=== PATIENT | female | born 1995 | race Caucasian/White ===

== ENCOUNTER 2016-08-16 21:57 | Emergency (ER) | payer OTHER ==
[~2016-08-16] VITALS: Ht 167.6 cm; Wt 101.0 kg
[~2016-08-16 21:57] MED LIST: CIPR500T4 PO; IBUP-1542 PO; ONDA4TAB35 PO
[2016-08-16 21:59] VITALS: Ht 167.6 cm; Wt 101.0 kg
--- NOTE | 2016-08-16 22:25 | ERD ---
ER Documentation Chief Complaint Date/Time DATE: 08/16/16 TIME: 22:24 Chief Complaint pelvic pain x 4 days HPI Patient is a 20-year-old female with no past medical history who presents to the ED with bilateral pelvic pain and suprapubic pain for the last 4 days. She states that her last normal menstrual period was sometime in mid June 2016. Denies vaginal bleeding or abnormal vaginal discharge. Denies dysuria or urinary symptoms. Denies fever or chills. Denies back pain. States that she has never been . ROS All systems reviewed and are negative except as per history of present illness. Medications Home Meds Active Scripts Phenazopyridine Hcl* (Pyridium*) 100 Mg Tab, 100 MG PO TID Y for URINARY PAIN, # 8 TAB Prov:CINDI STEELE PA-C 08/16/16 Ibuprofen* (Motrin*) 600 Mg Tab, 600 MG PO Q6, #30 TAB Prov:CINDI STEELE PA-C 08/16/16 Nitrofurantoin Monohyd Macrocr* (Macrobid*) 100 Mg Capsr, 100 MG PO BID for 14 Days, CAP Prov:CINDI STEELE PA-C 08/16/16 Ibuprofen* (Ibuprofen*) 600 Mg Tablet, 600 MG PO Q6H Y for pa, #30 TAB Prov:BRIELLE PADILLA NP 04/05/15 Ondansetron Hcl* (Zofran* ODT) 4 mg -ODT Tab.disper, 4 MG PO Q8 Y for NAUSEA AND OR VOMITING, #30 TAB Prov:BRIELLE PADILLA NP 04/05/15 Ciprofloxacin Hcl* (Ciprofloxacin Hcl*) 500 Mg Tablet, 500 MG PO BID, #20 TAB Prov:BRIELLE PADILLA NP 04/05/15 Reported Medications [none] Unknown Strength No Conflict Check 04/05/15 Allergies Allergies: Coded Allergies: No Known Allergy (Unverified , 03/28/11) PMhx/Soc History of Surgery: No Anesthesia Reaction: No Hx Neurological Disorder: No Hx Respiratory Disorders: No Hx Cardiac Disorders: No Hx Psychiatric Problems: No Hx Miscellaneous Medical Probl: No Hx Alcohol Use: No Hx Substance Use: No Hx Tobacco Use: No FmHx Family History: No coronary disease, No diabetes, No other Physical Exam Vitals Vital Signs Date Time Temp Pulse Resp B/P Pulse Ox O2 Delivery O2 Flow Rate FiO2 08/16/16 21:59 98.9 88 20 131/69 98 Physical Exam GENERAL: Well-developed, well-nourished female. Appears in no acute distress. HEAD: Normocephalic, atraumatic. EYES: Pupils are equally reactive bilaterally. EOMs grossly intact. No conjunctival erythema. ENT: Moist mucous membranes. No uvula deviation. No kissing tonsils. No exudates. NECK: Supple. No lymphadenopathy or thyromegaly. No meningismus. negative kernig. negative brudinski. LUNG: Clear to auscultation bilaterally. No rhonchi, wheezing, rales or coarse breath sounds. HEART: Regular rate and rhythm. No murmurs, rubs or gallops. ABDOMEN: No scars, ecchymosis or rashes noted. Soft, nontender, and nondistended. Positive bowel sounds in all four quadrants. No rebound tenderness , no guarding. (-) McBurneys point tenderness. No CVA tenderness. Bilateral pelvic pain. BACK: No midline tenderness. Extremities: Equal pulses bilaterally. No peripheral clubbing, cyanosis or edema. No unilateral leg swelling. NEUROLOGIC: Alert and oriented. Moving all four extremities. 5/5 strength in all extremities. Normal speech. Steady gait. SKIN: Normal color. Warm and dry. No rashes or lesions. Capillary refill < 2 seconds Results 24 hrs Laboratory Tests Test 08/16/16 22:32 Bedside Urine pH (LAB) 6.0 Bedside Urine Protein (LAB) 2+ Bedside Urine Glucose (UA) Negative Bedside Urine Ketones (LAB) Negative Bedside Urine Blood 1+ Bedside Urine Nitrite (LAB) Positive Bedside Urine Leukocyte Esterase (L Trace Procedures/MDM ER COURSE: I kept the patient and/or family informed of laboratory and diagnostic imaging results throughout the emergency room course. IMAGING STUDIES [place] [id number] Radiology Main Line: [phone] DIAGNOSTIC IMAGING REPORT Patient: EDGARDO LESTER : 1995 Age: 20 Sex: F MR #: [id number] DOS: 08/16/16 6140 Ordering MD: CINDI STEELE PA-C Location: [facility] Room/Bed: PROCEDURE: US Pelvis. CLINICAL INDICATION: Pelvic pain TECHNIQUE: Multiple sonographic images of the pelvis were obtained utilizing a transabdominal and endovaginal technique. The images were reviewed on a PACS workstation. COMPARISON: None available FINDINGS: Uterus: Normal in size, contour and echogenicity with no evidence for myometrial masses. Size is estimated at 5.4 x 3.7 x 2.6 cm. Cervix: No abnormalities of significance are seen. Endometrium: Normal in thickness; 4.0 mm. Right ovary / adnexa: Normal in size estimated at 3.6 x 2.5 x 1.7 cm. No evidence for masses, normal blood flow on Doppler interrogation. Left ovary/adnexa: Normal in size estimated at 3.1 x 2.4 x 2 cm. No evidence for solid masses, normal blood flow on Doppler interrogation. Cul-de-sac: No evidence of free fluid. RPTAT:HJJR IMPRESSION: Unremarkable pelvic ultrasound. Physician Yoshi Date Time Electronically viewed and signed by Physician Yoshi on 08/16/2016 23:28 JR/ CC: CINDI STEELE PA-C LABORATORY STUDIES Urine dip showed positive nitrites, trace leukocytes and 2+ hematuria. negative test MEDICAL DECISION MAKING: This is a 20-year-old female who presents with bilateral pelvic pain and suprapubic tenderness.. Vital signs were reviewed. Patient is afebrile. Patient is not hypoxic. Patient is not toxic or ill-appearing. Patient has a UTI as demonstrated by positive nitrites and trace leukocytes in her urine. Low suspicion for ovarian torsion, PID, tuboovarian abscess, ectopic , bowel obstruction, pyelonephritis, appendicitis, cervicitis, septic , molar , HELLP syndrome, preeclampsia, eclampsia, placenta previa, placenta abruptia. Ultrasound as of by radiologist is unremarkable. DISCHARGE: At this time, patient is stable for discharge and outpatient management with no new complaints during the ER course. Patient was sent home with Macrobid, Motrin and Pyridium. Patient will be discharged home with instructions to recheck for new or worsening symptoms such as fever, nausea, weakness, LOC and to follow up with primary care in the next 1-2 days. Patient was advised to return to the ER for any new or worsening symptoms. Plan was discussed and patient and/or family understands and agrees. Home instructions were given. Departure Diagnosis: Primary Impression: UTI (urinary tract infection) Urinary tract infection type: site unspecified Hematuria presence: with hematuria Qualified Code: N39.0 - Urinary tract infection with hematuria, site unspecified Condition: Stable CINDI STEELE PA-C August 16, 2016 22:25
[2016-08-16 22:30] LABS: URINE BLOOD (Dip) POC 1+ (NEGATIVE)
[2016-08-16] MEDS ORDERED: NITR-58 PO (22:49)
[2016-08-16] MEDS ORDERED: IBUP-1542 PO (22:49)
[2016-08-16] MEDS ORDERED: PHEN-537 PO (22:50)
--- NOTE | 2016-08-16 23:28 | RADRPT ---
PROCEDURE: US Pelvis. CLINICAL INDICATION: Pelvic pain TECHNIQUE: Multiple sonographic images of the pelvis were obtained utilizing a transabdominal and endovaginal technique. The images were reviewed on a PACS workstation. COMPARISON: None available FINDINGS: Uterus: Normal in size, contour and echogenicity with no evidence for myometrial masses. Size is est imated at 5.4 x 3.7 x 2.6 cm. Cervix: No abnormalities of significance are seen. Endometrium: Normal in thickness; 4.0 mm. Right ovary / adnexa: Normal in size estimated at 3.6 x 2.5 x 1.7 cm. No evidence for masses, norm al blood flow on Doppler interrogation. Left ovary/adnexa: Normal in size estimated at 3.1 x 2.4 x 2 cm. No evidence for solid masses, norm al blood flow on Doppler interrogation. Cul-de-sac: No evidence of free fluid. RPTAT:HJJR IMPRESSION: Unremarkable pelvic ultrasound. Physician Yoshi Date Time Electronically viewed and signed by Physician Yoshi on 08/16/2016 23:28 /
[2016-08-17 00:09] VITALS: PULSE 86; RESP 20; TEMP 98.8
== END 2016-08-17 00:08 | disposition home or self-care (01) ==
LOC: FTE 21:57
DX: N39.0 Urinary tract infection, site not specified (principal)
CPT/HCPCS: 76830; 76856; 81003

== ENCOUNTER 2016-10-21 14:24 | Emergency (ER) | payer MEDICAID, OTHER ==
[~2016-10-21] VITALS: Ht 162.6 cm; Wt 105.5 kg
[~2016-10-21 14:24] MED LIST changes: +NITR-58 PO; +PHEN-537 PO
[2016-10-21 14:43] VITALS: Ht 162.6 cm; Wt 105.5 kg
[2016-10-21] MEDS ORDERED: ONDANSETRON 4 MG INJ IV STA (15:58)
[2016-10-21] MEDS ORDERED: ACETAMINOPHEN 500 MG TAB PO STA (15:58)
[2016-10-21] MEDS ORDERED: SOD CHLORIDE 0.9% 1,000 ML IV STA (15:58)
[2016-10-21 16:35] LABS: BASOPHIL # 0.1 10^3/ul (0.0-0.1); BASOPHILS % 0.3 % (0.0-2.0); HEMATOCRIT 40.1 % (37.0-47.0); HEMOGLOBIN 13.6 g/dl (12.0-16.0); LYMPHOCYTES % 5.3 % (15.0-51.0); MEAN CORPUSCULAR HEMOGLOBIN 29.8 pg (29.0-33.0); MEAN CORPUSCULAR HGB CONC 33.9 g/dl (32.0-37.0); MEAN CORPUSCULAR VOLUME 87.7 fl (82.0-101.0); MONOCYTE # 1.3 10^3/ul (0.3-0.9); MONOCYTES % 6.9 % (0.0-11.0); NEUTROPHIL # 15.7 10^3/ul (1.6-7.5); NEUTROPHILS % 86.9 % (39.0-77.0); PLATELET COUNT 342 10^3/UL (140-415); RED BLOOD COUNT 4.57 10^6/ul (4.20-5.40); RED CELL DISTRIBUTION WIDTH 13.2 % (11.5-14.5)
[2016-10-21 16:45] LABS: ADD UMIC YES; UR ASCORBIC ACID NEGATIVE (NEGATIVE); UR BACTERIA FEW /HPF (NONE SEEN); UR BILIRUBIN (Dip) NEGATIVE (NEGATIVE); UR BLOOD (Dip) 2+ mg/dL (NEGATIVE); UR CLARITY CLOUDY (CLEAR); UR COLOR AMBER (YELLOW); UR GLUCOSE (Dip) NEGATIVE (NEGATIVE); UR KETONES (Dip) NEGATIVE (NEGATIVE); UR LEUKOCYTE ESTERASE (Dip) 2+ Leu/ul (NEGATIVE); UR MUCUS FEW /HPF (NONE SEEN); UR NITRITE (Dip) POSITIVE (NEGATIVE); UR RBC 38 /HPF (0-5); UR SPECIFIC GRAVITY (Dip) 1.024 (1.003-1.030); UR SQUAMOUS EPITHELIAL CELL FEW /HPF (FEW); UR TOTAL PROTEIN (Dip) 2+ mg/dl (NEGATIVE); UR UROBILINOGEN (Dip) 2+ mg/dL (NEGATIVE); UR WBC CLUMPS FEW /HPF (NONE SEEN)
[2016-10-21 17:01] LABS: ALBUMIN 4.6 g/dl (3.3-4.9); ALBUMIN/GLOBULIN RATIO 1.24; BILIRUBIN,INDIRECT 0.9 mg/dl (0-1.1); BILIRUBIN,TOTAL 0.9 mg/dl (0.2-1.3); CALCIUM 9.7 mg/dl (8.4-10.2); CREATININE 0.87 mg/dl (0.44-1.00); POTASSIUM 4.1 mmol/L (3.5-5.1); TOTAL PROTEIN 8.3 g/dl (6.1-8.1)
[2016-10-21] MEDS ORDERED: CEPH-443 PO (17:46)
[2016-10-21] MEDS ORDERED: ONDA4TAB14 PO (17:47)
[2016-10-21] MEDS ORDERED: ACET500C5 PO (17:47)
[2016-10-21] MEDS ORDERED: CEFTRIAXONE 1 GM/50 ML (PMX) 50 ML IVPB ONE (18:00)
[2016-10-21] MEDS ORDERED: CEFTRIAXONE 1 GM INJ IVPB ONE (18:00)
--- NOTE | 2016-10-21 18:32 | ERD ---
ER Documentation Chief Complaint Date/Time DATE: 10/21/16 TIME: 18:29 Chief Complaint Back pain and vomitting since yesterday. HPI Patient is a 20-year-old female here with mother who presents to the ED with back pain, vomiting and dysuria 1 day. Patient has a history of pyelonephritis and cystitis. Patient also complains of a fever. Denies diarrhea or abdominal pain. Denies chest pain or cough or shortness of breath. Denies headache or dizziness, neck pain or neck stiffness. Denies leg pain or leg swelling. Has not taken any medications for her symptoms. Patient was on Cipro earlier this year for similar symptoms. ROS All systems reviewed and are negative except as per history of present illness. Medications Home Meds Active Scripts Ondansetron (Ondansetron Odt) 4 Mg Tab.rapdis, 4 MG PO Q6H Y for NAUSEA AND/OR VOMITING, #10 TAB Prov:CINDI STEELE-C 10/21/16 Acetaminophen* (Tylophen*) 500 Mg Capsule, 1 CAP PO Q6H Y for PAIN AND OR ELEVATED TEMP, #20 CAP Prov:CINDI STEELE-C 10/21/16 Cephalexin* (Keflex*) 500 Mg Capsule, 500 MG PO TID for 14 Days, CAP Prov:CINDI STEELE-C 10/21/16 Phenazopyridine Hcl* (Pyridium*) 100 Mg Tab, 100 MG PO TID Y for URINARY PAIN, # 8 TAB Prov:CINDI STEELE-C 08/16/16 Ibuprofen* (Motrin*) 600 Mg Tab, 600 MG PO Q6, #30 TAB Prov:CINDI STEELE-C 08/16/16 Nitrofurantoin Monohyd Macrocr* (Macrobid*) 100 Mg Capsr, 100 MG PO BID for 14 Days, CAP Prov:CINDI STEELE-C 08/16/16 Ibuprofen* (Ibuprofen*) 600 Mg Tablet, 600 MG PO Q6H Y for pa, #30 TAB Prov:BRIELLE PADILLA NP 04/05/15 Ondansetron Hcl* (Zofran* ODT) 4 mg -ODT Tab.disper, 4 MG PO Q8 Y for NAUSEA AND OR VOMITING, #30 TAB Prov:BRIELLE PADILLA [employer]ING [employer]ACHINE OPERATOR 04/05/15 Ciprofloxacin Hcl* (Ciprofloxacin Hcl*) 500 Mg Tablet, 500 MG PO BID, #20 TAB Prov:BRIELLE PADILLA [employer] ATT[employer]ING MACHINE OPERATOR 04/05/15 Reported Medications [none] Unknown Strength No Conflict Check 04/05/15 Allergies Allergies: Coded Allergies: No Known Allergy (Unverified , 10/21/16) PMhx/Soc Medical and Surgical Hx: pt denies Medical Hx, pt denies Surgical Hx History of Surgery: No Anesthesia Reaction: No Hx Neurological Disorder: No Hx Respiratory Disorders: No Hx Cardiac Disorders: No Hx Psychiatric Problems: No Hx Miscellaneous Medical Probl: No Hx Alcohol Use: No Hx Substance Use: No Hx Tobacco Use: No FmHx Family History: No coronary disease, No diabetes, No other Physical Exam Vitals Vital Signs Date Time Temp Pulse Resp B/P Pulse Ox O2 Delivery O2 Flow Rate FiO2 10/21/16 14:43 102.7 108 18 122/77 98 Physical Exam GENERAL: Well-developed, well-nourished female. Appears in no acute distress. HEAD: Normocephalic, atraumatic. EYES: Pupils are equally reactive bilaterally. EOMs grossly intact. No conjunctival erythema. ENT: Moist mucous membranes. No uvula deviation. No kissing tonsils. No exudates. NECK: Supple. No lymphadenopathy or thyromegaly. No meningismus. negative kernig. negative brudinski. LUNG: Clear to auscultation bilaterally. No rhonchi, wheezing, rales or coarse breath sounds. HEART: Regular rate and rhythm. No murmurs, rubs or gallops. ABDOMEN: No scars, ecchymosis or rashes noted. Soft, nontender, and nondistended. Positive bowel sounds in all four quadrants. No rebound tenderness , no guarding. (-) McBurneys point tenderness. Right-sided CVA tenderness. BACK: No midline tenderness. Extremities: Equal pulses bilaterally. No peripheral clubbing, cyanosis or edema. No unilateral leg swelling. NEUROLOGIC: Alert and oriented. Moving all four extremities. 5/5 strength in all extremities. Normal speech. Steady gait. SKIN: Normal color. Warm and dry. No rashes or lesions. Capillary refill < 2 seconds Result Diagram: 10/21/16 1619 10/21/16 1619 Results 24 hrs Laboratory Tests Test 10/21/16 16:19 White Blood Count 18.010^3/ul Red Blood Count 4.5710^6/ul Hemoglobin 13.6g/dl Hematocrit 40.1% Mean Corpuscular Volume 87.7fl Mean Corpuscular Hemoglobin 29.8pg Mean Corpuscular Hemoglobin Concent 33.9g/dl Red Cell Distribution Width 13.2% Platelet Count 69888^3/UL Mean Platelet Volume 10.0fl Neutrophils % 86.9% Lymphocytes % 5.3% Monocytes % 6.9% Eosinophils % 0.0% Basophils % 0.3% Nucleated Red Blood Cells % 0.0/100WBC Neutrophils # 15.710^3/ul Lymphocytes # 1.010^3/ul Monocytes # 1.310^3/ul Eosinophils # 0.010^3/ul Basophils # 0.110^3/ul Nucleated Red Blood Cells # 0.010^3/ul Urine Color MNAFRED Urine Clarity CLOUDY Urine pH 6.0 Urine Specific [place] 1.024 Urine Ketones NEGATIVEmg/dL Urine Nitrite POSITIVEmg/dL Urine Bilirubin NEGATIVEmg/dL Urine Urobilinogen 2+mg/dL Urine Leukocyte Esterase 2+Nguyen/ul Urine Microscopic RBC 38/HPF Urine Microscopic WBC > 182/HPF Urine Squamous Epithelial Cells FEW/HPF Urine Bacteria FEW/HPF Urine Mucus FEW/HPF Urine Hemoglobin 2+mg/dL Urine Glucose NEGATIVEmg/dL Urine Total Protein 2+mg/dl Sodium Level 143mmol/L Potassium Level 4.1mmol/L Chloride Level 101mmol/L Carbon Dioxide Level 25mmol/L Anion Gap 21 Blood Urea Nitrogen 17mg/dl Creatinine 0.87mg/dl Glucose Level 104mg/dl Calcium Level 9.7mg/dl Total Bilirubin 0.9mg/dl Direct Bilirubin 0.00mg/dl Indirect Bilirubin 0.9mg/dl Aspartate Amino Transf (AST/SGOT) 24IU/L Alanine Aminotransferase (ALT/SGPT) 48IU/L Alkaline Phosphatase 78IU/L Total Protein 8.3g/dl Albumin 4.6g/dl Globulin 3.70g/dl Albumin/Globulin Ratio 1.24 Lipase 93U/L Current Medications Medications (Trade) Dose Ordered Sig/Sawyer Route PRN Reason Start Time Stop Time Status Last Admin Dose Admin Sodium Chloride (NS) 1,000 ml @ 1,000 mls/hr Q1H STAT IV 10/21/16 15:58 10/21/16 16:57 DC 10/21/16 16:14 Ondansetron HCl (Zofran Inj) 4 mg ONCE STAT IV 10/21/16 15:58 10/21/16 16:01 DC 10/21/16 16:13 Acetaminophen (Tylenol Tab) 1,000 mg ONCE STAT PO 10/21/16 15:58 10/21/16 16:01 DC 10/21/16 16:13 Ceftriaxone Sodium 1 gm 1 gm ONCE ONCE IVPB 10/21/16 18:00 10/21/16 18:00 DC Ceftriaxone Sodium (Rocephin) 50 ml @ 100 mls/hr ONCE ONCE IVPB 10/21/16 18:00 10/21/16 18:29 DC 10/21/16 17:57 Procedures/MDM ER COURSE: I kept the patient and/or family informed of laboratory and diagnostic imaging results throughout the emergency room course. MEDICATIONS: Tylenol, fluids, Rocephin. Tolerated well with no adverse reaction. LAB INTERPRETATION: CBC showed no evidence of severe anemia but does show an infection with a white count of 18 and a neutrophil shift. CMP showed no evidence of electrolyte abnormalities, severe acidosis, alkalosis, renal failure, or liver disease. Lipase showed no evidence of acute pancreatitis. UA shows positive nitrates, hematuria and positive leukocytes. Urine test negative MEDICAL DECISION MAKING: This is a 20-year-old female who presents with dysuria and back pain 1 day. Vital signs were reviewed. Patient has a temperature of 102.7 with a pulse of 108. Patient is not hypoxic. Patient's symptoms and laboratory studies are consistent with pyelonephritis. Patient is not ill-appearing in the ED. I reexamined patient after administration of medication she had improvement in symptoms. Patient was given Rocephin here in the ED and tolerated well. Patient will be sent home with Keflex as she has taken Cipro recently. Urine was also sent for culture. Low suspicion for ovarian torsion, PID, tuboovarian abscess, ectopic , bowel obstruction, appendicitis, cervicitis, septic , DISCHARGE: At this time, patient is stable for discharge and outpatient management with no new complaints during the ER course. Patient was sent home with Zofran, Tylenol and Keflex Patient will be discharged home with instructions to recheck for new or worsening symptoms such as fever, nausea, weakness, LOC and to follow up with primary care in the next 1-2 days. Patient was advised to return to the ER for any new or worsening symptoms. Plan was discussed and patient and/or family understands and agrees. Home instructions were given. Departure Diagnosis: Primary Impression: Pyelonephritis Condition: Stable Patient Instructions: Pyelonephritis, Female (Adult) Referrals: EMMA MACARIO (PCP) Additional Instructions: Call your primary care doctor TOMORROW for an appointment during the next 1-2 days.See the doctor sooner or return here if your condition worsens before your appointment time. CINDI STEELE PA-C Oct 21, 2016 18:32
[2016-10-21] MEDS ORDERED: IBUPROFEN 800 MG TAB PO ONE (19:00)
[2016-10-21 19:07] VITALS: TEMP 100.7
== END 2016-10-21 19:07 | disposition home or self-care (01) ==
LOC: FTE 14:24
DX: N12 Tubulo-interstitial nephritis, not specified as acute or chronic (principal)
CPT/HCPCS: 36415; 80053; 81001; 83690; 85025; 87086; 96374; 96375; J0696; J2405; J7030; Z7502; Z7610

== ENCOUNTER 2017-05-07 21:53 | Emergency (ER) | END 2017-05-08 04:11 | disposition home or self-care (01) ==

== ENCOUNTER 2017-08-29 17:07 | Emergency (ER) | END 2017-08-29 19:49 | disposition home or self-care (01) ==

== ENCOUNTER 2017-10-19 15:28 | Emergency (ER) | END 2017-10-19 19:40 | disposition home or self-care (01) ==

== ENCOUNTER 2017-10-20 22:05 | Inpatient (IN) | END 2017-10-27 17:16 | disposition home health service (06) | DRG 854 ==

== ENCOUNTER 2018-06-26 08:18 | Inpatient (IN) | payer OTHER ==
[~2018-06-26] VITALS: Ht 167.6 cm; Wt 114.0 kg
[~2018-06-26 08:18] MED LIST changes: +ACET325T40 PO; +AMOX1TAB10 PO; -IBUP-1542 PO; -NITR-58 PO; -ONDA4TAB35 PO; -PHEN-537 PO
[2018-06-26] MEDS ORDERED: ACETAMINOPHEN 325 MG TAB PO STA (08:48)
[2018-06-26] MEDS ORDERED: SODIUM CHLORIDE 0.9% 1L BAG IV* STA (08:48)
[2018-06-26] MEDS ORDERED: ONDANSETRON 4 MG INJ IV STA (08:48)
[2018-06-26] MEDS ORDERED: PIPER-TAZO 3.375 GM IV (PMX) 100 ML IVPB ONE (10:00)
--- NOTE | 2018-06-26 10:38 | ERD ---
ER Documentation Chief Complaint Chief Complaint RIGHT LOWER QUADRANT PAIN X2 DAYS HPI This is a 22-year-old female with a history of abdominal pelvic abscess requiring surgical drainage in October 2017 who presents to the emergency room with several days of right lower quadrant abdominal discomfort with subjective fevers and chills. The pain is 6 out of 10, cramping and dull. This feels similar to prior abscess. ROS All systems reviewed and are negative except as per history of present illness. Medications Home Meds Active Scripts Acetaminophen (MAPAP) 325 Mg Tablet, 650 MG PO Q6H PRN for PAIN AND OR ELEVATED TEMP for 7 Days, #28 TAB Prov:DEIDRA LOU MD 10/27/17 Ciprofloxacin Hcl* (Ciprofloxacin Hcl*) 500 Mg Tablet, 500 MG PO BID@,18 for 7 Days, #14 TAB Prov:DEIDRA LOU MD 10/27/17 Amoxicillin/Potassium Clav (Amox-Clav 875-125 mg Tablet) 875-125 mg Tab, 875 MG PO BID for 7 Days, #14 TAB Prov:DEIDRA LOU MD 10/27/17 Allergies Allergies: Coded Allergies: No Known Allergy (Unverified , 10/19/17) PMhx/Soc Medical and Surgical Hx: pt denies Medical Hx History of Surgery: Yes (Abdominal surgery) Anesthesia Reaction: No Hx Neurological Disorder: No Hx Respiratory Disorders: No Hx Cardiac Disorders: No Hx Psychiatric Problems: No Hx Miscellaneous Medical Probl: No Hx Alcohol Use: No Hx Substance Use: No Hx Tobacco Use: No Smoking Status: Never smoker FmHx Family History: No diabetes Physical Exam Vitals Vital Signs Date Temp Pulse Resp B/P (MAP) Pulse Ox O2 O2 Flow FiO2 Time Delivery Rate 06/26/18 98.5 88 18 117/65 99 Room Air 10:31 (82) 06/26/18 100.6 102 18 129/70 98 08:19 (89) Physical Exam General: Well developed, well nourished, no acute distress Head: Normocephalic, atraumatic. Eyes: Pupils equally reactive, EOM intact ENT: Moist mucous membranes Neck: Supple, no lymphadenopathy Respiratory: Lungs clear bilaterally, no distress Cardiovascular: RRR, no murmurs, rubs, or gallops Abdominal: Soft, non-tender, mild tenderness to the right lower quadrant without rebound or guarding : Deferred MSK: No edema, no unilateral swelling, 5/5 strength Neurologic: Alert and oriented, moving all extremities, normal speech, no focal weakness, no cerebellar signs Skin: No rash Psych: Normal mood Result Diagram: 06/26/18 0858 06/26/18 0858 Results 24 hrs Laboratory Tests Test 06/26/18 08:58 06/26/18 08:59 06/26/18 09:07 White Blood Count 16.4 10^3/ul Red Blood Count 4.65 10^6/ul Hemoglobin 12.9 g/dl Hematocrit 39.5 % Mean Corpuscular Volume 84.9 fl Mean Corpuscular Hemoglobin 27.7 pg Mean Corpuscular 32.7 g/dl Hemoglobin Concent Red Cell Distribution Width 13.3 % Platelet Count 408 10^3/UL Mean Platelet Volume 10.3 fl Immature Granulocytes % 0.900 % Neutrophils % 76.7 % Lymphocytes % 15.2 % Monocytes % 6.3 % Eosinophils % 0.4 % Basophils % 0.5 % Nucleated Red Blood Cells % 0.0 /100WBC Immature Granulocytes # 0.140 10^3/ul Neutrophils # 12.6 10^3/ul Lymphocytes # 2.5 10^3/ul Monocytes # 1.0 10^3/ul Eosinophils # 0.1 10^3/ul Basophils # 0.1 10^3/ul Nucleated Red Blood Cells # 0.0 10^3/ul Sodium Level 139 mmol/L Potassium Level 4.1 mmol/L Chloride Level 101 mmol/L Carbon Dioxide Level 26 mmol/L Anion Gap 12 Blood Urea Nitrogen 9 mg/dl Creatinine 0.60 mg/dl Est Glomerular Filtrat > 60 mL/min Rate mL/min Glucose Level 109 mg/dl Calcium Level 9.7 mg/dl Total Bilirubin 0.7 mg/dl Direct Bilirubin 0.00 mg/dl Indirect Bilirubin 0.7 mg/dl Aspartate Amino Transf (AST/SGOT) 16 IU/L Alanine 6 IU/L Aminotransferase (ALT/SGPT) Alkaline Phosphatase 100 IU/L Total Protein 9.2 g/dl Albumin 4.3 g/dl Globulin 4.90 g/dl Albumin/Globulin Ratio 0.87 Urine Color MANFRED Urine Clarity CLOUDY Urine pH 6.0 Urine Specific Todd 1.025 Urine Ketones 1+ mg/dL Urine Nitrite NEGATIVE mg/dL Urine Bilirubin NEGATIVE mg/dL Urine Urobilinogen 2+ mg/dL Urine Leukocyte Esterase 1+ Nguyen/ul Urine Microscopic RBC 22 /HPF Urine Microscopic WBC 26 /HPF Urine Squamous Epithelial Cells MANY /HPF Urine Bacteria FEW /HPF Urine Mucus FEW /HPF Urine Hemoglobin NEGATIVE mg/dL Urine Glucose NEGATIVE mg/dL Urine Total Protein 1+ mg/dl POC Beta HCG, Qualitative NEGATIVE POC Venous Lactate 1.2 mmol/L Current Medications Medications Dose Sig/Sawyer Start Time Status Last (Trade) Ordered Route PRN Stop Time Admin Dose Reason Admin Sodium 3,430 ml BOLUS OVER 2 06/26/18 DC 06/26/18 Chloride HOURS STAT 08:48 06/26/18 09:00 (NS) IV* 08:51 650 mg ONCE STAT 06/26/18 DC 06/26/18 Acetaminophen PO 08:48 06/26/18 08:59 (Tylenol 08:51 Tab) Ondansetron 4 mg ONCE STAT 06/26/18 DC 06/26/18 HCl (Zofran IV 08:48 06/26/18 08:59 Inj) 08:51 Piperacillin 100 ml @ ONCE ONCE 06/26/18 DC 06/26/18 Sod/ 200 mls/hr IVPB 10:00 06/26/18 10:09 Tazobactam 10:29 Sod Ondansetron 4 mg BRIDGE ORDER 06/26/18 HCl (Zofran PRN IV 11:30 06/27/18 Inj) NAUSEA/VOMITI 11:29 NG 650 mg ER BRIDGE 06/26/18 Acetaminophen PRN PO 11:30 06/27/18 (Tylenol .MILD PAIN 11:29 Tab) 1-3 OR TEMP Procedures/MDM EKG, MONITORS, & DIAGNOSTIC IMAGING: CT of the abdomen pelvis: IMPRESSION: 1. Complex 4.9 x 4.7 x 8.1 cm lesion within the right adnexa with trace associated fat stranding and several tiny blebs of gas, features consistent with recurrent abscess. Differential considerations include tubo-ovarian abscess and diverticular abscess. 2. Diverticulosis of the sigmoid bowel. 3. Nonobstructing 10 mm calculus within the right kidney. US PELVIS IMPRESSION: Enlarged right ovary with 2 hemorrhagic cysts, measuring 4.7 and 3.4 cm. Small amount of adjacent free fluid. LAB INTERPRETATION: I reviewed the laboratory testing and it shows leukocytosis with normal lactic acid MEDICAL DECISION MAKING: The patient presents with fever, tachycardia and concern for recurrence of abscess. While the patient does meet SIRS criteria in the waiting room she was identified to me from the ER to at a later time. Patient had received appropriate antipyretics, fluid resuscitation. I added broad-spectrum antibiotic in the form of Zosyn. Antibiotic was delivered within a 3-hour timeframe of arrival. I was able to speak to the prior surgeon Dr. Anderson who states that he is not available to care for the patient he recommends contacting surgeon on-call. The patient will require IV antibiotics, possible surgical drainage versus IR drainage. Given the location of the abscess ultrasound of the pelvis was ordered but lower clinical concern for TOA or ovarian process. This is in a similar location and presentation is prior GI related abscess. ER COURSE: * 30 cc/kg bolus of saline provided, antipyretics, blood cultures prior to antibiotics * Symptoms improving * I was able to speak to Dr. Rees, reviewed the case. He asked that I speak to interventional radiology for possible drainage. Dr. Schaefer was consulted and does not feel that the location is amenable to IR drainage. Additionally there is potential for this being a ovarian process. Low concern for torsion. Dr. Hsu was consulted for [employer] and will consult on the case. Patient has no risk factors for TOA or PID. She has no vaginal discharge. This is more likely colonic and GI related. Patient has appropriate antibiotics on board. CONSULTATION: General surgeon: Dr Sanches says Dr. Rees is covering, he has been notified of patient. DISPOSITION PLAN: Accepting care team and consultations: I discussed the current laboratory data, diagnostic imaging and emergency care provided. Admitting team: Dr. Randall Admitting team indication: Insurance directed Sepsis Documentation: Patient's infectious symptoms have not stabilized and the patient is at risk of rapid decompensation. The patient will be admitted for careful hydration, antibiotic therapy, and infectious source control. SEVERE SEPSIS CRITERIA: Infectious source: Intra-abdominal abscess End organ damage indicated by: No evidence currently SEPSIS MANAGEMENT Time of recognition of sepsis: [Upon MD assessment]. Time of recognition of severe sepsis: [No severe sepsis at this time]. Time of recognition of septic shock: [No septic shock at this time]. 3 HOUR BUNDLE Blood cultures x 2 before broad-spectrum antibiotics: [Yes] 30 ml/kg NS bolus pending completion as of 10:37 AM Initial lactate less than 2 Repeat lactate pending SEPTIC SHOCK ASSESSMENT: [No] lactic acid > 4.0 [No] Persistent hypotension (SBP < 90 or 40 mmHg drop, MAP < 65) despite 30 mL/kg IV fluid bolus VOLUME REASSESSMENT FOR SEPTIC SHOCK: [The patient does not meet criteria for septic shock in the emergency department at this time] PERSISTENT HYPOTENSION TREATMENT: Comfort care [No] Central line [Not Required] Vasopressor started [Not required] I considered further perfusion assessment with CVP measurement, SCVO2, bedside ultrasound volume assessment, passive leg raise, trial of further fluid bolus. And proceeded with [30 ml/kg fluid bolus of NSS, broad spectrum antibiotics, and admission.] CRITICAL CARE Critical care time [35] minutes Emergent fluid management while maintaining close respiratory support. Provision of immediate and broad-spectrum antibiotic therapy. Simultaneous assessment for possible sources in order to direct targeted therapy. Consideration for invasive and chemical support to prevent cardiopulmonary collapse. Critical care time is independent of procedures performed. Departure Diagnosis: Primary Impression: Intra-abdominal abscess Additional Impression: Sepsis Sepsis type: sepsis due to unspecified organism Qualified Codes: A41.9 - Sepsis, unspecified organism Condition: Stable GROVER TREVIZO MD Jun 26, 2018 10:38
[2018-06-26] MEDS ORDERED: ACETAMINOPHEN 325 MG TAB PO PRN (11:30)
[2018-06-26] MEDS ORDERED: ONDANSETRON 4 MG INJ IV PRN (11:30)
--- NOTE | 2018-06-26 13:53 | HP ---
Date/Time of Note Date/Time of Note DATE: 06/26/18 TIME: 13:39 Assessment/Plan VTE Prophylaxis Pharmacological prophylaxis: NA/contraindicated Pharm contraindication: low risk/ambulating Lines/Catheters [facility] Saline Lock Assessment/Plan Hospital Course 22 yo Morbidly obese female who had presented with RLQ abd pain of sudden onset currently managed as follows 1. RLQ adnexal lesion concerning for recurrent abscess -tuboovarian verus diverticular -s/p laparoscopic I and D of pelvic abscess, source? 11/08, cultures at that time gre Pansensitive Strep -At this time, gen surg consult has again been obtained with Dr Rees who has requested Vaccinator consult as well. Per ER, IR stated lesion is not amenable to percutaneouds drainage again -could be residual abscess? was slightly larger last time -For now, as abscess is poorly defined on CAT scan, we will continue empiric antibiotics, patient symptoms have also resolved temporarily, so we will advance her diet. We will also await consultants recommendations. -Conservative management will involve repeating CAT scan in a day or 2 preferably with IV and p.o. contrast to better define abdominal and abscess anatomy. -In the interim continue supportive care, will also rule out sexually transmitted diseases 2. Morbid obesity -Calorie controlled diet was advanced to full diet 3. Mild sepsis secondary to 1 4. Urinary tract infection Result Diagram: 06/26/18 0858 06/26/18 0858 Results 24hrs Laboratory Tests Test 06/26/18 08:58 06/26/18 08:59 06/26/18 09:07 White Blood Count 16.4 #H Red Blood Count 4.65 # Hemoglobin 12.9 # Hematocrit 39.5 # Mean Corpuscular Volume 84.9 Mean Corpuscular Hemoglobin 27.7 L Mean Corpuscular Hemoglobin Concent 32.7 Red Cell Distribution Width 13.3 Platelet Count 408 # Mean Platelet Volume 10.3 Immature Granulocytes % 0.900 H Neutrophils % 76.7 Lymphocytes % 15.2 Monocytes % 6.3 Eosinophils % 0.4 Basophils % 0.5 Nucleated Red Blood Cells % 0.0 Immature Granulocytes # 0.140 H Neutrophils # 12.6 H Lymphocytes # 2.5 Monocytes # 1.0 H Eosinophils # 0.1 Basophils # 0.1 Nucleated Red Blood Cells # 0.0 Sodium Level 139 Potassium Level 4.1 Chloride Level 101 Carbon Dioxide Level 26 Anion Gap 12 Blood Urea Nitrogen 9 Creatinine 0.60 Est Glomerular Filtrat Rate mL/min > 60 Glucose Level 109 Calcium Level 9.7 Total Bilirubin 0.7 Direct Bilirubin 0.00 Indirect Bilirubin 0.7 Aspartate Amino Transf (AST/SGOT) 16 Alanine Aminotransferase (ALT/SGPT) 6 L Alkaline Phosphatase 100 Total Protein 9.2 H Albumin 4.3 Globulin 4.90 H Albumin/Globulin Ratio 0.87 Urine Color MANFRED Urine Clarity CLOUDY A Urine pH 6.0 Urine Specific Wilmer 1.025 Urine Ketones 1+ H Urine Nitrite NEGATIVE Urine Bilirubin NEGATIVE Urine Urobilinogen 2+ H Urine Leukocyte Esterase 1+ H Urine Microscopic RBC 22 H Urine Microscopic WBC 26 H Urine Squamous Epithelial Cells MANY A Urine Bacteria FEW A Urine Mucus FEW A Urine Hemoglobin NEGATIVE Urine Glucose NEGATIVE Urine Total Protein 1+ H POC Beta HCG, Qualitative NEGATIVE POC Venous Lactate 1.2 HPI/ROS Admit Date/Time Admit Date/Time Hx of Present Illness This is a 22-year-old female who was recently admitted in this facility October 2017 after she had presented with similar symptoms and was found to have a pelvic abscess that was not amenable to percutaneous drainage and so she ended up undergoing laparoscopic drainage. Cultures at that time grew Streptococcus that was pansensitive to antibiotics. She was treated and once her symptoms improved she was discharged. The patient tells me she has been well since then, but developed severe abdominal pain over the last 2 days that has been intermittent spell yesterday became worse and did not resolve. Patient that she came to the emergency room to ensure nothing new was going on. Unfortunately at this time CAT scan is showing a lesion again in the right adnexa concerning for possible recurrent abscess. The patient at this time is pain-free, she has no more fever though she did have fever prior denies chest pain, denies passing out episodes, denies dysuria or hematuria. She is a non-smoker, does not have a history of diabetes or hypertension. ROS 12 point review if systems was done and pertinent findings are as noted. PMH/Family/Social Past Medical History pelvic abscess, s/p laparoscopic drainage Medications Current Medications Ondansetron HCl (Zofran Inj) 4 mg BRIDGE ORDER PRN IV NAUSEA/VOMITING; Start 06/26/18 at 11:30; Stop 06/27/18 at 11:29 Acetaminophen (Tylenol Tab) 650 mg ER BRIDGE PRN PO .MILD PAIN 1-3 OR TEMP; Start 06/26/18 at 11:30; Stop 06/27/18 at 11:29 Coded Allergies: No Known Allergy (Unverified , 06/26/18) Family History Significant Family History: no pertinent family hx Social History Alcohol Use: none Smoking Status: Never smoker Drug Use: none Exam/Review of Systems Vital Signs Vitals Vital Signs Date Temp Pulse Resp B/P (MAP) Pulse Ox O2 O2 Flow FiO2 Time Delivery Rate 06/26/18 98.5 88 18 117/65 99 Room Air 10:31 (82) Exam Exam General: A&O x3, answering questions appropriately, obese HEENT: NC/ AT. PERRL. EOM intact Neck: supple CVS: S1, S2, RRR. no murmurs. no pain on chest wall palpation Lungs: CTA b/l. no wheezing or rhonchi Abd: soft, nontender, +BS, obese : Patient interestingly does not have adnexal tenderness on deep palpation even in the right lower quadrant, gross inspection of her vulvar region does not show any abnormalities. No evidence of discharge. Ext: moving all extremities, no edema skin: no rashes Additional Comments AMENDMENT: 06/26/2018 11:12:01 AM Greg Rodrigez M.d The IUD is not well seen. PROCEDURE: US Pelvis. CLINICAL INDICATION: pelvic pain TECHNIQUE: Multiple sonographic images of the pelvis were obtained utilizing transabdominal technique. The images were reviewed on a PACS workstation. COMPARISON: CT 06/26/2018; US PELVIS 08/16/2016 FINDINGS: The uterus is normal in size with a normal appearance of the myometrium. The uterus measures 7.6 x 2.8 x 4.1 cm. The endometrial stripe is homogeneous in appearance and has the thickness of 5 mm. Normal Doppler flow is identified in both ovaries. The right ovary measures 9.5 x 6.1 x 7.9 cm. There is a 4.7 cm hemorrhagic cyst in the right ovary. There is a 3.4 cm hemorrhagic cyst in the right ovary. The left ovary measures 3.2 x 2.1 x 1.7 cm. There is a small amount of free fluid in the right adnexa. RPTAT: AA IMPRESSION: Enlarged right ovary with 2 hemorrhagic cysts, measuring 4.7 and 3.4 cm. Small amount of adjacent free fluid. .Greg Rodrigez MD, MD Date Time Electronically viewed and signed by .Greg Rodrigez MD, MD on 06/26/2018 11:12 .S/ CC: GROVER TREVIZO MD [id number] PROCEDURE: CT Abdomen and Pelvis without contrast. CLINICAL INDICATION: Possible sepsis TECHNIQUE: CT scan of the abdomen and pelvis without contrast was performed on a multi-detector high-resolution CT scanner. Coronal and sagittal reformatted images obtained from the axial source images. Images were reviewed on a high- resolution PACS workstation. Exam CTDI 23.61 mGy Exam DLP 1317.64 mGy-cm DICOM images are available. One or more of the following dose reduction techniques were utilized: 1.) Automated exposure control 2.) Adjustment of the mA +/- kV according to patient's size 3.) Use of iterative reconstruction technique. COMPARISON: None FINDINGS: CT abdomen: LOWER THORAX: Lung bases are clear. LIVER AND GALLBLADDER: No abnormal findings. SPLEEN: Normal. PANCREAS: Normal. ADRENAL GLANDS: Normal. KIDNEYS: There is a 0.8 x 0.7 x 1.0 cm calculus within the central right renal collecting system. There is no associated dilatation of the renal pelvis or calyces. No evidence of an obstructing stone in the right ureter. Left kidney and ureter are unremarkable. VASCULATURE: Abdominal aorta is normal in caliber. LYMPH NODES: No significant retroperitoneal or mesenteric lymphadenopathy. BOWEL AND MESENTERY: Stomach and small bowel are unremarkable. A normal appendix is identified. Moderate diverticulosis of the descending and sigmoid colon. CT pelvis: There is a heterogeneous, predominantly low attenuation lesion within the right adnexa which measures 4.9 x 4.7 x 8.1 cm. Trace associated fat stranding. Several tiny blebs of gas are identified within this collection. A distinct right ovary is not visualized separate from this collection. The lesion abuts the lower sigmoid colon. There is otherwise no appreciable thickening of the underlying bowel wall. An intrauterine contraceptive device is present in the uterus is otherwise unremarkable. The urinary bladder is decompressed and appears normal. Bones: Regional bones and superficial soft tissues are grossly unremarkable. IMPRESSION: 1. Complex 4.9 x 4.7 x 8.1 cm lesion within the right adnexa with trace associated fat stranding and several tiny blebs of gas, features consistent with recurrent abscess. Differential considerations include tubo-ovarian abscess and diverticular abscess. 2. Diverticulosis of the sigmoid bowel. 3. Nonobstructing 10 mm calculus within the right kidney. Results called to Dr. Lucas at 9:53 am on 06/26/2018. RPTAT: [facility] Physician Reta Date Time Electronically viewed and signed by Physician Reta on 06/26/2018 09:57 xB/ CC: RAMILA LUCAS MD [id number] CAMRENCITA BALDWIN Jun 26, 2018 13:50
[2018-06-26 15:34] VITALS: Ht 167.6 cm; Wt 114.0 kg
[2018-06-26 16:00] VITALS: BP 138/75; RESP 16
[2018-06-26] MEDS: SOD CHLORIDE 0.9% 1,000 ML IV SCH (16:10)
--- NOTE | 2018-06-26 16:12 | CONS ---
Assessment/Plan Assessment/Plan Assessment/Plan (Daily) A abdominal pain rt ovarian cyst r/o pelvic abscess leukocytosis P f/u u/s for ovarian cyst as out patient broad antibiotics consider not surgical abdomen Consultation Date/Type/Reason Admit Date/Time Date of Consultation: Jun 26, 2018 Type of Consult esthetician/spa coordinator Reason for Consultation pelvic pain vomiting x1 Date/Time of Note DATE: 06/26/18 TIME: 15:48 service rendered at 1230 Hx of Present Illness 22 y.onuliigravida LMP 06/03/18 lasted 4days whose period regular monthly q 30days last for 4days without significant menstrual pain, presented ED with RLQ pain after vomit x1 right after ate spaghetti last night around 1800. no more vomiting , denies diarrhea no nausea pain on RLQ is mild and increase with movement or tilted on rt recumbent position . no medication was given prior to my exam in ED u/s reviewed dicrete ovarian cyst on rt ovary containing x2 separate sonolucent cyst with in the Rt ovary which I feel it can be f/u with repeat u/s in 3mo as outpatient after PE including VE and rectal exam. [id number] RLQ pain not significant Constitutional: no complaints, improved Eyes: no complaints ENT: no complaints Respiratory: no complaints Cardiovascular: no complaints Gastrointestinal: no complaints, pain, vomiting Genitourinary: no complaints Musculoskeletal: no complaints; No back pain, No bone/joint pain, No neck pain, No restricted range of motion, No swelling, No other Skin: no complaints Neurologic: no complaints Endocrine: no complaints Past Medical History Medical History: no pertinent history Home Meds Discontinued Scripts Acetaminophen (MAPAP) 325 Mg Tablet, 650 MG PO Q6H PRN for PAIN AND OR ELEVATED TEMP for 7 Days, #28 TAB Prov:DEIDRA LOU MD 10/27/17 Ciprofloxacin Hcl* (Ciprofloxacin Hcl*) 500 Mg Tablet, 500 MG PO BID@06,18 for 7 Days, #14 TAB Prov:DEIDRA LOU MD 10/27/17 Amoxicillin/Potassium Clav (Amox-Clav 875-125 mg Tablet) 875-125 mg Tab, 875 MG PO BID for 7 Days, #14 TAB Prov:DEIDRA LOU MD 10/27/17 Medications Current Medications Acetaminophen (Tylenol Tab) 650 mg ER BRIDGE PRN PO .MILD PAIN 1-3 OR TEMP; Start 4/5/19 at 11:30; Stop 06/27/18 at 11:29 Piperacillin Sod/ Tazobactam Sod 100 ml @ 200 mls/hr Q8 IVPB ; Start 06/26/18 at 16:00 Sodium Chloride 1,000 ml @ 100 mls/hr Q10H IV ; Start 06/26/18 at 14:00; Stop 06/27/18 at 09:59 Polyethylene Glycol (Miralax) 17 gm DAILY PO ; Start 06/26/18 at 14:00 Ondansetron HCl (Zofran Inj) 4 mg Q6H PRN IV NAUSEA AND/OR VOMITING; Start 06/26/18 at 14:00 Acetaminophen/ Hydrocodone Bitart ([place] (5/325)) 1 tab Q6H PRN PO MODERATE PAIN LEVEL 4-6; Start 06/26/18 at 14:00 Allergies: Coded Allergies: No Known Allergy (Unverified , 06/26/18) Past Surgical History 10/23/17 LSC abcess drainge for pelvic abcess origin was poss sigmoid diverticulitis? Past Surgical Hx: other Family History Significant Family History: no pertinent family hx, hypertension Social History Alcohol Use: none Smoking Status: Current every day smoker Drug Use: none Exam/Review of Systems Exam Vitals Vital Signs Date Temp Pulse Resp B/P (MAP) Pulse Ox O2 O2 Flow FiO2 Time Delivery Rate 06/26/18 98.5 88 18 117/65 99 Room Air 10:31 (82) Constitutional: alert, oriented, well developed Psych: no complaints, nl mood/affect Head: normocephalic, atraumatic Eyes: nl conjunctiva, EOMI, nl lids, nl sclera, PERRL ENMT: nl external ears & nose, nl lips & teeth, nl nasal mucosa & septum Neck: supple, non-tender Respiratory: clear to auscultation, normal air movement Cardiovascular: regular rate and rhythm, nl pulses Gastrointestinal: soft, nl liver, spleen, non-tender, bowel sounds Genitourinary - Female: other (rt ovarian cyst ) Musculoskeletal: nl extremities to inspection, nl gait and stance Extremities: normal pulses Neurological: ACTIVITIES AIDE II-XII intact, nl mental status, nl speech, nl strength Results Result Diagram: 06/26/18 0858 06/26/18 0858 Results 24hrs Laboratory Tests Test 06/26/18 08:58 06/26/18 08:59 06/26/18 09:07 White Blood Count 16.4 #H Red Blood Count 4.65 # Hemoglobin 12.9 # Hematocrit 39.5 # Mean Corpuscular Volume 84.9 Mean Corpuscular Hemoglobin 27.7 L Mean Corpuscular Hemoglobin Concent 32.7 Red Cell Distribution Width 13.3 Platelet Count 408 # Mean Platelet Volume 10.3 Immature Granulocytes % 0.900 H Neutrophils % 76.7 Lymphocytes % 15.2 Monocytes % 6.3 Eosinophils % 0.4 Basophils % 0.5 Nucleated Red Blood Cells % 0.0 Immature Granulocytes # 0.140 H Neutrophils # 12.6 H Lymphocytes # 2.5 Monocytes # 1.0 H Eosinophils # 0.1 Basophils # 0.1 Nucleated Red Blood Cells # 0.0 Sodium Level 139 Potassium Level 4.1 Chloride Level 101 Carbon Dioxide Level 26 Anion Gap 12 Blood Urea Nitrogen 9 Creatinine 0.60 Est Glomerular Filtrat Rate mL/min > 60 Glucose Level 109 Calcium Level 9.7 Total Bilirubin 0.7 Direct Bilirubin 0.00 Indirect Bilirubin 0.7 Aspartate Amino Transf (AST/SGOT) 16 Alanine Aminotransferase (ALT/SGPT) 6 L Alkaline Phosphatase 100 Total Protein 9.2 H Albumin 4.3 Globulin 4.90 H Albumin/Globulin Ratio 0.87 Urine Color MANFRED Urine Clarity CLOUDY A Urine pH 6.0 Urine Specific [place] 1.025 Urine Ketones 1+ H Urine Nitrite NEGATIVE Urine Bilirubin NEGATIVE Urine Urobilinogen 2+ H Urine Leukocyte Esterase 1+ H Urine Microscopic RBC 22 H Urine Microscopic WBC 26 H Urine Squamous Epithelial Cells MANY A Urine Bacteria FEW A Urine Mucus FEW A Urine Hemoglobin NEGATIVE Urine Glucose NEGATIVE Urine Total Protein 1+ H POC Beta HCG, Qualitative NEGATIVE POC Venous Lactate 1.2 Medications Medication Current Medications Acetaminophen (Tylenol Tab) 650 mg ER BRIDGE PRN PO .MILD PAIN 1-3 OR TEMP; Start 06/26/18 at 11:30; Stop 06/27/18 at 11:29 Piperacillin Sod/ Tazobactam Sod 100 ml @ 200 mls/hr Q8 IVPB ; Start 06/26/18 at 16:00 Sodium Chloride 1,000 ml @ 100 mls/hr Q10H IV ; Start 06/26/18 at 14:00; Stop 06/27/18 at 09:59 Polyethylene Glycol (Miralax) 17 gm DAILY PO ; Start 06/26/18 at 14:00 Ondansetron HCl (Zofran Inj) 4 mg Q6H PRN IV NAUSEA AND/OR VOMITING; Start 06/26/18 at 14:00 Acetaminophen/ Hydrocodone Bitart ([place] (5/325)) 1 tab Q6H PRN PO MODERATE PAIN LEVEL 4-6; Start 06/26/18 at 14:00 DHRUV SHERMAN MD Jun 26, 2018 16:00
[2018-06-26] MEDS: POLYETHYLENE GLYCOL 17 GM PACKET PO SCH (16:58)
[2018-06-26] MEDS: PIPER-TAZO 3.375 GM IV (PMX) 100 ML IVPB SCH ×2 (16:58→22:12)
[2018-06-26] MEDS: HYDROCODONE/APAP (5/325) TAB PO PRN (20:18)
[2018-06-26 20:22] VITALS: BP 128/68; PULSE 114; RESP 17
[2018-06-26] MEDS: ACETAMINOPHEN 325 MG TAB PO PRN (22:16)
[2018-06-27] MEDS: SOD CHLORIDE 0.9% 1,000 ML IV SCH (01:07)
[2018-06-27 02:51] VITALS: BP 111/70; PULSE 100; RESP 20
[2018-06-27] MEDS: PIPER-TAZO 3.375 GM IV (PMX) 100 ML IVPB SCH ×3 (06:26→22:18)
[2018-06-27 07:48] VITALS: BP 97/54; PULSE 98; RESP 18
[2018-06-27] MEDS: POLYETHYLENE GLYCOL 17 GM PACKET PO SCH (08:52)
[2018-06-27] MEDS: HYDROCODONE/APAP (5/325) TAB PO PRN ×2 (08:54→19:14)
[2018-06-27] MEDS: ACETAMINOPHEN 325 MG TAB PO PRN (13:12)
--- NOTE | 2018-06-27 13:59 | PN ---
Date/Time of Note Date/Time of Note DATE: 06/27/18 TIME: 13:58 Assessment/Plan VTE Prophylaxis Risk score (from Ns)>0 risk: 1 SCD applied (from Ns): No SCD contraindicated: low risk/ambulating Pharmacological prophylaxis: heparin Lines/Catheters IV [facility] (from [facility]): Peripheral IV Assessment/Plan Problems: (1) Intra-abdominal abscess Status: Acute Comment: Patient has been seen in the emergency room by obstetrics gynecology who recommends outpatient follow-up. Patient is receiving aggressive antibiotic therapy with this will continue. General surgery consultation will be by shortly Result Diagram: 06/27/1843406/27/18434 Results 24hrs Laboratory Tests Test 06/27/18 04:35 White Blood Count 19.1 H Red Blood Count 4.17 L Hemoglobin 11.5 L Hematocrit 36.1 L Mean Corpuscular Volume 86.6 Mean Corpuscular Hemoglobin 27.6 L Mean Corpuscular Hemoglobin Concent 31.9 L Red Cell Distribution Width 13.4 Platelet Count 383 Mean Platelet Volume 9.8 Immature Granulocytes % 0.800 H Neutrophils % 80.0 H Lymphocytes % 11.4 L Monocytes % 7.2 Eosinophils % 0.3 Basophils % 0.3 Nucleated Red Blood Cells % 0.0 Immature Granulocytes # 0.160 H Neutrophils # 15.3 H Lymphocytes # 2.2 Monocytes # 1.4 H Eosinophils # 0.1 Basophils # 0.1 Nucleated Red Blood Cells # 0.0 Sodium Level 141 Potassium Level 5.0 Chloride Level 102 Carbon Dioxide Level 31 Anion Gap 8 Blood Urea Nitrogen 6 L Creatinine 0.69 Est Glomerular Filtrat Rate mL/min > 60 Glucose Level 113 Calcium Level 9.1 Magnesium Level 2.3 Subjective 24 Hr Interval Summary Free Text/Dictation She reports she has been ambulating here in the hospital. She reports her pelvic pain is slightly less today. Constitutional: no complaints (Fevers chills or sweats) Respiratory: no complaints Cardiovascular: no complaints Gastrointestinal: no complaints Exam/Review of Systems Exam Vitals Vital Signs Date Temp Pulse Resp B/P (MAP) Pulse Ox O2 O2 Flow FiO2 Time Delivery Rate 06/27/18 99.0 98 18 97/54 (68) 96 Room Air 07:48 Intake and Output 06/26/18 06/26/18 06/27/18 1515:00 23:00 07:00 IntakeIntake Total 2400 ml 1400 ml OutputOutput Total 650 ml BalanceBalance 1750 ml 1400 ml Constitutional: alert, oriented Respiratory: clear to auscultation, normal air movement Gastrointestinal: soft, nl liver, spleen, non-tender Results Results 24hrs Laboratory Tests Test 06/27/18 04:35 White Blood Count 19.1 H Red Blood Count 4.17 L Hemoglobin 11.5 L Hematocrit 36.1 L Mean Corpuscular Volume 86.6 Mean Corpuscular Hemoglobin 27.6 L Mean Corpuscular Hemoglobin Concent 31.9 L Red Cell Distribution Width 13.4 Platelet Count 383 Mean Platelet Volume 9.8 Immature Granulocytes % 0.800 H Neutrophils % 80.0 H Lymphocytes % 11.4 L Monocytes % 7.2 Eosinophils % 0.3 Basophils % 0.3 Nucleated Red Blood Cells % 0.0 Immature Granulocytes # 0.160 H Neutrophils # 15.3 H Lymphocytes # 2.2 Monocytes # 1.4 H Eosinophils # 0.1 Basophils # 0.1 Nucleated Red Blood Cells # 0.0 Sodium Level 141 Potassium Level 5.0 Chloride Level 102 Carbon Dioxide Level 31 Anion Gap 8 Blood Urea Nitrogen 6 L Creatinine 0.69 Est Glomerular Filtrat Rate mL/min > 60 Glucose Level 113 Calcium Level 9.1 Magnesium Level 2.3 Medications Medication Current Medications Piperacillin Sod/ Tazobactam Sod 100 ml @ 200 mls/hr Q8 IVPB Last administered on 06/27/18at 13:55; Admin Dose 200 MLS/HR; Start 06/26/18 at 16:00 Polyethylene Glycol (Miralax) 17 gm DAILY PO Last administered on 06/27/18at 0 8:52; Admin Dose 17 GM; Start 06/26/18 at 14:00 Ondansetron HCl (Zofran Inj) 4 mg Q6H PRN IV NAUSEA AND/OR VOMITING; Start 06/26/18 at 14:00 Acetaminophen/ Hydrocodone Bitart ([place] (5/325)) 1 tab Q6H PRN PO MODERATE PAIN LEVEL 4-6 Last administered on 06/27/18at 08:54; Admin Dose 1 TAB; Start 06/26/18 at 14:00 Acetaminophen (Tylenol Tab) 650 mg Q4H PRN PO MILD PAIN(1-3)OR ELEVATED TEMP Last administered on 06/27/18at 13:12; Admin Dose 650 MG; Start 06/26/18 at 21:00 Metronidazole (Flagyl) 500 mg Q8 PO ; Start 06/27/18 at 14:00; Stop 07/04/18 at 13:59; Status RICH MONTENEGRO MD Jun 27, 2018 13:59
[2018-06-27 14:00] VITALS: BP 110/62; PULSE 99; RESP 18
[2018-06-27] MEDS: metroNIDAZOLE 500 MG TAB PO SCH ×2 (14:37→22:18)
--- NOTE | 2018-06-27 17:56 | QN ---
Documentation Comment HD #1 for TOA with a h/o TOA in the past. Pt still has some pain but reports that it has improved. She had a large TOA drained via LSC in 10/2017 as it was not accessible via percutaneous routes. Pt denies any fevers/chills/ bowel changes. T= T=99 BP 97/54 Abdomen soft, nondistended, and not particularly tender to palpation. WBC 16.4. P: Continue IV Zosyn. Will get a repeat CBC in the AM and to plan for repeat imaging in 2 days. Abscess was 4.9 x 4.7 x 8.1 cm. ASIA PINO MD Jun 27, 2018 17:56
[2018-06-27 20:00] VITALS: BP 105/55; PULSE 105; RESP 20
[2018-06-27 20:30] VITALS: BP 111/63; PULSE 88; RESP 18
[2018-06-27] MEDS ORDERED: ASA/ACETAMINOPHEN/CAFF TAB PO ONE (20:30)
[2018-06-28 02:38] VITALS: BP 108/62; PULSE 100; RESP 17
[2018-06-28] MEDS: ACETAMINOPHEN 325 MG TAB PO PRN (03:14)
[2018-06-28] MEDS: PIPER-TAZO 3.375 GM IV (PMX) 100 ML IVPB SCH ×3 (05:21→22:06)
[2018-06-28] MEDS: metroNIDAZOLE 500 MG TAB PO SCH ×4 (05:21→23:56)
[2018-06-28 07:39] VITALS: BP 111/58; PULSE 83; RESP 17
[2018-06-28] MEDS: POLYETHYLENE GLYCOL 17 GM PACKET PO SCH (09:06)
--- NOTE | 2018-06-28 09:25 | PN ---
Date/Time of Note Date/Time of Note DATE: 06/28/18 TIME: 09:23 Assessment/Plan VTE Prophylaxis Risk score (from [facility])>0 risk: 1 SCD applied (from [facility]): No SCD contraindicated: low risk/ambulating Pharmacological prophylaxis: heparin Pharm contraindication: low risk/ambulating Lines/Catheters [facility] Saline Lock Urinary Cath still in place: No Assessment/Plan Problems: (1) Intra-abdominal abscess Status: Acute Comment: Please see second note from our obstetrical NET UI DEVELOPER consultants. Tubo- ovarian abscess actually makes a fair amount of sense. I have gone ahead and ordered the follow-up ultrasound to be performed in 2 days. In addition we will give a single dosage of azithromycin orally 1 time (2) Fever Status: Acute Comment: Continue careful observation Qualifiers: Fever type: unspecified Qualified Codes: R50.9 - Fever, unspecified Result Diagram: 06/28/18 0431 06/28/18 0431 Results 24hrs Laboratory Tests Test 06/28/18 04:31 White Blood Count 16.5 H Red Blood Count 4.20 Hemoglobin 11.5 L Hematocrit 36.3 L Mean Corpuscular Volume 86.4 Mean Corpuscular Hemoglobin 27.4 L Mean Corpuscular Hemoglobin Concent 31.7 L Red Cell Distribution Width 13.4 Platelet Count 395 Mean Platelet Volume 9.9 Immature Granulocytes % 1.000 H Neutrophils % 77.0 Lymphocytes % 14.1 L Monocytes % 7.0 Eosinophils % 0.5 Basophils % 0.4 Nucleated Red Blood Cells % 0.0 Immature Granulocytes # 0.160 H Neutrophils # 12.7 H Lymphocytes # 2.3 Monocytes # 1.2 H Eosinophils # 0.1 Basophils # 0.1 Nucleated Red Blood Cells # 0.0 Sodium Level 140 Potassium Level 4.3 Chloride Level 101 Carbon Dioxide Level 29 Anion Gap 10 Blood Urea Nitrogen 4 L Creatinine 0.68 Est Glomerular Filtrat Rate mL/min > 60 Glucose Level 116 Calcium Level 9.3 Subjective 24 Hr Interval Summary Free Text/Dictation Patient reports she is still having pain but it is not as bad as it was last October. Constitutional: febrile (Fevers 100.6 no shaking chills or drenching sweats) Respiratory: no complaints Cardiovascular: no complaints Gastrointestinal: pain Genitourinary: no complaints (Lower quadrant) Exam/Review of Systems Exam Vitals Vital Signs Date Temp Pulse Resp B/P (MAP) Pulse Ox O2 O2 Flow FiO2 Time Delivery Rate 06/28/18 98.4 83 17 111/58 95 07:39 (75) 06/28/18 Room Air 02:38 Intake and Output 06/27/18 06/27/18 06/28/18 1515:00 23:00 07:00 IntakeIntake Total 900 ml 2040 ml 340 ml BalanceBalance 900 ml 2040 ml 340 ml Constitutional: alert, oriented Respiratory: clear to auscultation, normal air movement Cardiovascular: regular rate and rhythm, nl pulses Gastrointestinal: soft, nl liver, spleen, non-tender Results Results 24hrs Laboratory Tests Test 06/28/18 04:31 White Blood Count 16.5 H Red Blood Count 4.20 Hemoglobin 11.5 L Hematocrit 36.3 L Mean Corpuscular Volume 86.4 Mean Corpuscular Hemoglobin 27.4 L Mean Corpuscular Hemoglobin Concent 31.7 L Red Cell Distribution Width 13.4 Platelet Count 395 Mean Platelet Volume 9.9 Immature Granulocytes % 1.000 H Neutrophils % 77.0 Lymphocytes % 14.1 L Monocytes % 7.0 Eosinophils % 0.5 Basophils % 0.4 Nucleated Red Blood Cells % 0.0 Immature Granulocytes # 0.160 H Neutrophils # 12.7 H Lymphocytes # 2.3 Monocytes # 1.2 H Eosinophils # 0.1 Basophils # 0.1 Nucleated Red Blood Cells # 0.0 Sodium Level 140 Potassium Level 4.3 Chloride Level 101 Carbon Dioxide Level 29 Anion Gap 10 Blood Urea Nitrogen 4 L Creatinine 0.68 Est Glomerular Filtrat Rate mL/min > 60 Glucose Level 116 Calcium Level 9.3 Medications Medication Current Medications Piperacillin Sod/ Tazobactam Sod 100 ml @ 200 mls/hr Q8 IVPB Last administered on 06/28/18at 05:21; Admin Dose 200 MLS/HR; Start 06/26/18 at 16:00 Polyethylene Glycol (Miralax) 17 gm DAILY PO Last administered on 06/28/18at 09:06; Admin Dose 17 GM; Start 06/26/18 at 14:00 Ondansetron HCl (Zofran Inj) 4 mg Q6H PRN IV NAUSEA AND/OR VOMITING; Start 06/26/18 at 14:00 Acetaminophen/ Hydrocodone Bitart ([place] (5/325)) 1 tab Q6H PRN PO MODERATE PAIN LEVEL 4-6 Last administered on 06/27/18at 19:14; Admin Dose 1 TAB; Start 06/26/18 at 14:00 Acetaminophen (Tylenol Tab) 650 mg Q4H PRN PO MILD PAIN(1-3)OR ELEVATED TEMP Last administered on 06/28/18at 03:14; Admin Dose 650 MG; Start 06/26/18 at 21:00 Metronidazole (Flagyl) 500 mg Q8 PO Last administered on 06/28/18at 05:21; Admin Dose 500 MG; Start 06/27/18 at 14:00; Stop 07/04/18 at 13:59 RICH HACKETT MD Jun 28, 2018 09:25
[2018-06-28] MEDS ORDERED: AZITHROMYCIN 500 MG TAB PO ONE (10:00)
--- NOTE | 2018-06-28 12:26 | QN ---
Documentation Comment patient is seen at the bedside .she is comfortable No abdominal pain No VB VS stable Gen NAD Abd soft NT ND Genitalia Deferred --->Continue Antibiotics --->General surgery consult for possible diverticulitis is recommended LALITA GLEZ M.D. Jun 28, 2018 12:26
[2018-06-28] MEDS: ONDANSETRON 4 MG INJ IV PRN (12:35)
[2018-06-28 15:01] VITALS: BP 112/70; PULSE 97; RESP 17
[2018-06-28] MEDS ORDERED: ASA/ACETAMINOPHEN/CAFF TAB PO PRN (15:30)
[2018-06-28 16:13] VITALS: BP 121/70; PULSE 91; RESP 18
[2018-06-28 20:00] VITALS: BP 128/58; PULSE 90; RESP 19
[2018-06-29 02:00] VITALS: BP 130/63; PULSE 89; RESP 19
[2018-06-29] MEDS: metroNIDAZOLE 500 MG TAB PO SCH ×3 (06:23→22:02)
[2018-06-29] MEDS: PIPER-TAZO 3.375 GM IV (PMX) 100 ML IVPB SCH ×3 (06:23→22:02)
[2018-06-29 07:26] VITALS: BP 119/62; PULSE 82; RESP 18
[2018-06-29] MEDS: POLYETHYLENE GLYCOL 17 GM PACKET PO SCH (09:00)
--- NOTE | 2018-06-29 11:32 | QN ---
Documentation Comment patient is seen at the bedside .she is comfortable No abdominal pain No VB VS stable Gen NAD Abd soft NT ND Genitalia Deferred WBC is trending down --->No Acute and surgical intervention is needed at this time -->patient can be followed up as outpatient with her provider --->Questions answered Precautions discussed LALITA GLEZ M.D. Jun 29, 2018 11:32
--- NOTE | 2018-06-29 14:15 | PN ---
Date/Time of Note Date/Time of Note DATE: 06/29/18 TIME: 14:15 Assessment/Plan VTE Prophylaxis Risk score (from Ns)>0 risk: 1 SCD applied (from Ns): No SCD contraindicated: low risk/ambulating Pharmacological prophylaxis: NA/contraindicated Pharm contraindication: low risk/ambulating Lines/Catheters IV [facility]from [facility] Saline Lock Urinary Cath still in place: No Assessment/Plan Hospital Course s: no active pain at this time, but will get pangs intermittently O : Constitutional: alert, oriented, obese Head: atraumatic, normocephalic Neck: non-tender, supple Respiratory: clear to auscultation Cardiovascular: regular rate and rhythm Gastrointestinal: S/ mildly tender on very deep palpation R adnexa / obese / +BS Extremities: no edema, good radial pulses assessment and plan: 22 yo Morbidly obese female who had presented with RLQ abd pain of sudden onset currently managed as follows 1. RLQ adnexal lesion concerning for recurrent abscess -tuboovarian verus diverticular -s/p laparoscopic I and D of pelvic abscess, source? 11/08, cultures at that time grew Pansensitive Strep -Gen surg yet to put in consult note, graduate teaching assistant recommendation to discharge noted -will repeat CT after 3 days of IV abx and see wheat we have 2. Morbid obesity -full liquid diet 3. Mild sepsis secondary to 1: improved 4. Urinary tract infection: contaminant Result Diagram: 06/29/18 0425 06/29/18 0425 Results 24hrs Laboratory Tests Test 06/29/18 04:25 White Blood Count 15.0 H Red Blood Count 4.18 L Hemoglobin 11.5 L Hematocrit 35.7 L Mean Corpuscular Volume 85.4 Mean Corpuscular Hemoglobin 27.5 L Mean Corpuscular Hemoglobin Concent 32.2 Red Cell Distribution Width 13.2 Platelet Count 430 H Mean Platelet Volume 10.1 Immature Granulocytes % 0.700 H Neutrophils % 76.5 Lymphocytes % 15.4 Monocytes % 6.5 Eosinophils % 0.5 Basophils % 0.4 Nucleated Red Blood Cells % 0.0 Immature Granulocytes # 0.110 H Neutrophils # 11.5 H Lymphocytes # 2.3 Monocytes # 1.0 H Eosinophils # 0.1 Basophils # 0.1 Nucleated Red Blood Cells # 0.0 Sodium Level 141 Potassium Level 4.7 Chloride Level 101 Carbon Dioxide Level 30 Anion Gap 10 Blood Urea Nitrogen 7 Creatinine 0.77 Est Glomerular Filtrat Rate mL/min > 60 Glucose Level 99 Calcium Level 9.7 Exam/Review of Systems Exam Vitals Vital Signs Date Temp Pulse Resp B/P (MAP) Pulse Ox O2 O2 Flow FiO2 Time Delivery Rate 06/29/18 98.2 82 18 119/62 98 07:26 (81) 06/28/18 Room Air 16:13 Intake and Output 06/28/18 06/28/18 06/29/18 1515:00 23:00 07:00 IntakeIntake Total 220 ml 900 ml 50 ml OutputOutput Total 90 ml BalanceBalance 130 ml 900 ml 50 ml Results Results 24hrs Laboratory Tests Test 06/29/18 04:25 White Blood Count 15.0 H Red Blood Count 4.18 L Hemoglobin 11.5 L Hematocrit 35.7 L Mean Corpuscular Volume 85.4 Mean Corpuscular Hemoglobin 27.5 L Mean Corpuscular Hemoglobin Concent 32.2 Red Cell Distribution Width 13.2 Platelet Count 430 H Mean Platelet Volume 10.1 Immature Granulocytes % 0.700 H Neutrophils % 76.5 Lymphocytes % 15.4 Monocytes % 6.5 Eosinophils % 0.5 Basophils % 0.4 Nucleated Red Blood Cells % 0.0 Immature Granulocytes # 0.110 H Neutrophils # 11.5 H Lymphocytes # 2.3 Monocytes # 1.0 H Eosinophils # 0.1 Basophils # 0.1 Nucleated Red Blood Cells # 0.0 Sodium Level 141 Potassium Level 4.7 Chloride Level 101 Carbon Dioxide Level 30 Anion Gap 10 Blood Urea Nitrogen 7 Creatinine 0.77 Est Glomerular Filtrat Rate mL/min > 60 Glucose Level 99 Calcium Level 9.7 Medications Medication Current Medications Piperacillin Sod/ Tazobactam Sod 100 ml @ 200 mls/hr Q8 IVPB Last administered on 06/29/18at 06:23; Admin Dose 200 MLS/HR; Start 06/26/18 at 16:00 Polyethylene Glycol (Miralax) 17 gm DAILY PO Last administered on 06/29/18at 09:00; Admin Dose 17 GM; Start 06/26/18 at 14:00 Ondansetron HCl (Zofran Inj) 4 mg Q6H PRN IV NAUSEA AND/OR VOMITING Last administered on 06/28/18at 12:35; Admin Dose 4 MG; Start 06/26/18 at 14:00 Acetaminophen/ Hydrocodone Bitart ([place] (5/325)) 1 tab Q6H PRN PO MODERATE PAIN LEVEL 4-6 Last administered on 06/27/18at 19:14; Admin Dose 1 TAB; Start 06/26/18 at 14:00 Acetaminophen (Tylenol Tab) 650 mg Q4H PRN PO MILD PAIN(1-3)OR ELEVATED TEMP Last administered on 06/28/18 03:14; Admin Dose 650 MG; Start 06/26/18 at 21:00 Acetaminophen/ Aspirin/Caffeine (Excedrin) 1 tab PRN PRN PO MILD PAIN LEVEL 1-3 Last administered on 06/28/18at 16:54; Admin Dose 1 TAB; Start 06/28/18 at 15:30 Metronidazole (Flagyl) 500 mg Q8 PO Last administered on 06/29/18 06:23; Admin Dose 500 MG; Start 06/28/18 at 23:30; Stop 07/04/18 at 13:59 CARMENCITA BALDWIN Jun 29, 2018 14:15
[2018-06-29] MEDS ORDERED: IOHEXOL 14.3 MG(I)/ML (ADULT) BTL PO ONE (14:30)
[2018-06-29] MEDS: ONDANSETRON 4 MG INJ IV PRN (14:37)
[2018-06-29 15:06] VITALS: BP 121/56; PULSE 88; RESP 18
[2018-06-29] MEDS: HYDROCODONE/APAP (5/325) TAB PO PRN (16:51)
[2018-06-29] MEDS ORDERED: SOD CHLORIDE 0.9% 100 ML ONE (20:28)
[2018-06-29] MEDS ORDERED: IOHEXOL 300MG/ML 150 ML BTL ONE (20:28)
[2018-06-29 20:38] VITALS: BP 110/64; PULSE 97; RESP 18
[2018-06-30 02:14] VITALS: BP 126/66; PULSE 84; RESP 18
[2018-06-30] MEDS: metroNIDAZOLE 500 MG TAB PO SCH ×3 (05:50→21:16)
[2018-06-30] MEDS: PIPER-TAZO 3.375 GM IV (PMX) 100 ML IVPB SCH ×3 (05:50→21:11)
[2018-06-30 07:14] VITALS: BP 100/51; PULSE 88; RESP 18
[2018-06-30] MEDS: POLYETHYLENE GLYCOL 17 GM PACKET PO SCH (08:52)
--- NOTE | 2018-06-30 12:09 | PN ---
Date/Time of Note Date/Time of Note DATE: 06/30/18 TIME: 12:09 Assessment/Plan VTE Prophylaxis Risk score (from Nsg)>0 risk: 1 SCD applied (from Ns): No SCD contraindicated: low risk/ambulating Pharmacological prophylaxis: NA/contraindicated Pharm contraindication: low risk/ambulating Lines/Catheters IV Catheter Type (from Nrs): Saline Lock Urinary Cath still in place: No Assessment/Plan Hospital Course s: no active pain at this time, we reviewed CT findings O : Constitutional: alert, oriented, obese Head: atraumatic, normocephalic Neck: non-tender, supple Respiratory: clear to auscultation Cardiovascular: regular rate and rhythm Gastrointestinal: S/ mildly tender on very deep palpation R adnexa / obese / +B S Extremities: no edema, good radial pulses assessment and plan: 22 yo Morbidly obese female who had presented with RLQ abd pain of sudden onset currently managed as follows 1. RLQ adnexal lesion concerning for recurrent abscess -tuboovarian verus diverticular -s/p laparoscopic I and D of pelvic abscess, source? 11/08, cultures at that time grew Pansensitive Strep -Gen surg yet to put in consult note, gyn physician recommendation to discharge noted -Repeat CT after 3 days of IV abx basically shows no change -spoke with gyn physician, states patient needs outpatient f/u -will speak with surgery as well to obtain clearance, Dr Rees will review imaging with Dr Schaefer and get back to me 2. Morbid obesity -Continue full liquid diet 3. Mild sepsis secondary to 1: improved 4. Urinary tract infection: contaminant Dispo: await surgery final recs Result Diagram: 06/29/18 0425 06/29/18 0425 Exam/Review of Systems Exam Vitals Vital Signs Date Temp Pulse Resp B/P (MAP) Pulse Ox O2 O2 Flow FiO2 Time Delivery Rate 06/30/18 98.6 88 18 100/51 92 07:14 (67) 06/28/18 Room Air 16:13 Intake and Output 06/29/18 06/29/18 06/30/18 1515:00 23:00 07:00 IntakeIntake Total 100 ml 420 ml 100 ml BalanceBalance 100 ml 420 ml 100 ml Medications Medication Current Medications Piperacillin Sod/ Tazobactam Sod 100 ml @ 200 mls/hr Q8 IVPB Last administered on 06/30/18 05:50; Admin Dose 200 MLS/HR; Start 06/26/18 at 16:00 Polyethylene Glycol (Miralax) 17 gm DAILY PO Last administered on 06/30/18 08:52; Admin Dose 17 GM; Start 06/26/18 at 14:00 Ondansetron HCl (Zofran Inj) 4 mg Q6H PRN IV NAUSEA AND/OR VOMITING Last administered on 06/29/18 14:37; Admin Dose 4 MG; Start 06/26/18 at 14:00 Acetaminophen/ Hydrocodone Bitart ([place] (5/325)) 1 tab Q6H PRN PO MODERATE PAIN LEVEL 4-6 Last administered on 06/29/18 16:51; Admin Dose 1 TAB; Start 06/26/18 at 14:00 Acetaminophen (Tylenol Tab) 650 mg Q4H PRN PO MILD PAIN(1-3)OR ELEVATED TEMP [place] [facility] administered on 06/28/18 03:14; Admin Dose 650 MG; Start 06/26/18 at 21:00 Acetaminophen/ Aspirin/Caffeine (Excedrin) 1 tab PRN PRN PO MILD PAIN LEVEL 1-3 Last administered on 06/28/18 16:54; Admin Dose 1 TAB; Start 06/28/18 at 15:30 Metronidazole (Flagyl) 500 mg Q8 PO Last administered on 06/30/18 05:50; Admin Dose 500 MG; Start 06/28/18 at 23:30; Stop 07/04/18 at 13:59 CARMENCITA BALDWIN Jun 30, 2018 12:09
[2018-06-30 13:22] VITALS: BP 102/57; PULSE 86; RESP 18
--- NOTE | 2018-06-30 16:43 | QN ---
Documentation Comment patient is seen at the bedside .she is comfortable No abdominal pain No VB VS stable Gen NAD Abd soft NT ND Genitalia Deferred Ultrasound and CT scan reviewed --->No Acute and surgical intervention is needed at this time --->Questions answered Precautions discussed LALITA GLEZ M.D. Jun 30, 2018 16:43
[2018-06-30 19:50] VITALS: BP 119/65; PULSE 93; RESP 18
[2018-06-30] MEDS: HYDROCODONE/APAP (5/325) TAB PO PRN (21:16)
--- NOTE | 2018-06-30 23:20 | CONS ---
Assessment/Plan Assessment/Plan Assessment/Plan (Daily) Right ovarian complex structure consistent with an highly suspicious of tubo- ovarian abscess with increasing fluid and increasing size of collection posterior to the rectum and effacing the right ovary. Normal left ovary. I feel that this is highly suspicious for tubo-ovarian abscess and should be dealt with accordingly either drainage or antibiotics as per gynecology however because of the increasing size I would be concerned that this could possibly fistulas into the rectum and therefore I would support an aggressive gynecologic surgical approach. Consultation Date/Type/Reason Admit Date/Time Date of Consultation: Jun 30, 2018 Type of Consult Surgery consult Reason for Consultation Right pelvic fluid collection Date/Time of Note DATE: 06/30/18 TIME: 23:14 Hx of Present Illness Patient 22-year-old female who in October had a drainage of a pelvic fluid collection. He now presents with fever and noted on ultrasound and CAT scan to have a right pelvic fluid collection. Asked to see her from a general surgery perspective. I have reviewed the CAT scan and ultrasound myself and with radiologist. In the right lower quadrant right pelvis by the right ovary there is a complex structure which has been increasing in size from the initial imaging studies. This is highly suspicious for a tubo-ovarian abscess. There is a normal left ovary there is increasing fluid noted on CAT scan there is a right adnexal abscess which is 7 x 5 x 4 cm this is also consistent with a tubo-ovarian abscess. I do spoken with notcher Dr. Ghassan Proctor who felt there is no need for surgical intervention. Her graph patient denies any other past surgical his tory. Patient denies being sexually active. Patient denies any Past Medical History Medical History: no pertinent history Home Meds Discontinued Scripts Acetaminophen (MAPAP) 325 Mg Tablet, 650 MG PO Q6H PRN for PAIN AND OR ELEVATED TEMP for 7 Days, #28 TAB Prov:DEIDRA LOU MD 10/27/17 Ciprofloxacin Hcl* (Ciprofloxacin Hcl*) 500 Mg Tablet, 500 MG PO BID@,18 for 7 Days, #14 TAB Prov:DEIDRA LOU MD 10/27/17 Amoxicillin/Potassium Clav (Amox-Clav 875-125 mg Tablet) 875-125 mg Tab, 875 MG PO BID for 7 Days, #14 TAB Prov:DEIDRA LOU MD 10/27/17 Medications Current Medications Piperacillin Sod/ Tazobactam Sod 100 ml @ 200 mls/hr Q8 IVPB Last administered on 06/30/18 21:11; Admin Dose 200 MLS/HR; Start 06/26/18 at 16:00 Polyethylene Glycol (Miralax) 17 gm DAILY PO Last administered on 06/30/18 08:52; Admin Dose 17 GM; Start 06/26/18 at 14:00 Ondansetron HCl (Zofran Inj) 4 mg Q6H PRN IV NAUSEA AND/OR VOMITING Last administered on 06/29/18 14:37; Admin Dose 4 MG; Start 06/26/18 at 14:00 Acetaminophen/ Hydrocodone Bitart ([place] (5/325)) 1 tab Q6H PRN PO MODERATE PAIN LEVEL 4-6 Last administered on 06/30/18 21:16; Admin Dose 1 TAB; Start 06/26/18 at 14:00 Acetaminophen (Tylenol Tab) 650 mg Q4H PRN PO MILD PAIN(1-3)OR ELEVATED TEMP Last administered on 06/28/18 03:14; Admin Dose 650 MG; Start 06/26/18 at 21:00 Acetaminophen/ Aspirin/Caffeine (Excedrin) 1 tab PRN PRN PO MILD PAIN LEVEL 1-3 Last administered on 06/28/18 16:54; Admin Dose 1 TAB; Start 06/28/18 at 15:30 Metronidazole (Flagyl) 500 mg Q8 PO Last administered on 06/30/18 21:16; Admin Dose 500 MG; Start 06/28/18 at 23:30; Stop 07/04/18 at 13:59 Allergies: Coded Allergies: No Known Allergy (Unverified , 06/26/18) Past Surgical History Past Surgical Hx: other Social History Alcohol Use: none Smoking Status: Current every day smoker Drug Use: none Exam/Review of Systems Exam Vitals Vital Signs Date Temp Pulse Resp B/P (MAP) Pulse Ox O2 O2 Flow FiO2 Time Delivery Rate 06/30/18 97.8 93 18 119/65 97 19:50 (83) 06/28/18 Room Air 16:13 Intake and Output 06/29/18 06/29/18 06/30/18 1515:00 23:00 07:00 IntakeIntake Total 100 ml 420 ml 100 ml BalanceBalance 100 ml 420 ml 100 ml Exam ANO x3. Lungs clear to auscultation. Heart regular rate and rhythm without gallops murmurs or rubs normal S1-S2. Abdomen obese nondistended no palpable masses nontender. Results Result Diagram: 06/29/1842406/29/18424 Medications Medication Current Medications Piperacillin Sod/ Tazobactam Sod 100 ml @ 200 mls/hr Q8 IVPB Last administered on 06/30/18 21:11; Admin Dose 200 MLS/HR; Start 06/26/18 at 16:00 Polyethylene Glycol (Miralax) 17 gm DAILY PO Last administered on 06/30/18 08:52; Admin Dose 17 GM; Start 06/26/18 at 14:00 Ondansetron HCl (Zofran Inj) 4 mg Q6H PRN IV NAUSEA AND/OR VOMITING Last administered on 06/29/18 14:37; Admin Dose 4 MG; Start 06/26/18 at 14:00 Acetaminophen/ Hydrocodone Bitart ([place] (5/325)) 1 tab Q6H PRN PO MODERATE PAIN LEVEL 4-6 Last administered on 06/30/18 21:16; Admin Dose 1 TAB; Start 06/26/18 at 14:00 Acetaminophen (Tylenol Tab) 650 mg Q4H PRN PO MILD PAIN(1-3)OR ELEVATED TEMP Last administered on 06/28/18 03:14; Admin Dose 650 MG; Start 06/26/18 at 21:00 Acetaminophen/ Aspirin/Caffeine (Excedrin) 1 tab PRN PRN PO MILD PAIN LEVEL 1-3 Last administered on 06/28/18 16:54; Admin Dose 1 TAB; Start 06/28/18 at 15:30 Metronidazole (Flagyl) 500 mg Q8 PO Last administered on 06/30/18 21:16; Admin Dose 500 MG; Start 06/28/18 at 23:30; Stop 07/04/18 at 13:59 TYLER GRIFFIN MD Jun 30, 2018 23:20
[2018-07-01 02:28] VITALS: BP 90/55; PULSE 77; RESP 18
[2018-07-01] MEDS: metroNIDAZOLE 500 MG TAB PO SCH ×3 (05:03→22:09)
[2018-07-01] MEDS: PIPER-TAZO 3.375 GM IV (PMX) 100 ML IVPB SCH ×3 (05:03→22:09)
[2018-07-01] MEDS: HYDROCODONE/APAP (5/325) TAB PO PRN ×2 (05:04→22:16)
[2018-07-01 07:54] VITALS: BP 90/62; PULSE 81; RESP 18
[2018-07-01] MEDS: POLYETHYLENE GLYCOL 17 GM PACKET PO SCH (09:27)
[2018-07-01 13:12] VITALS: BP 113/63; PULSE 63; RESP 18
--- NOTE | 2018-07-01 13:12 | PN ---
Date/Time of Note Date/Time of Note DATE: 07/01/18 TIME: 13:08 Assessment/Plan VTE Prophylaxis Risk score (from Nsg)>0 risk: 1 SCD applied (from Ns): No SCD contraindicated: low risk/ambulating Pharmacological prophylaxis: NA/contraindicated Pharm contraindication: low risk/ambulating Lines/Catheters IV Catheter Type (from Nrs): Saline Lock Urinary Cath still in place: No Assessment/Plan Hospital Course s: no active pain at this time, I also went to labor and delivery and spoke with the shelter director emd special education teacher Dr. Campbell, she had just reviewed the patient. please see recommendations as below O : Constitutional: alert, oriented, obese Head: atraumatic, normocephalic Neck: non-tender, supple Respiratory: clear to auscultation Cardiovascular: regular rate and rhythm Gastrointestinal: S/ mildly tender on very deep palpation R adnexa / obese / +BS Extremities: no edema, good radial pulses assessment and plan: 22 yo Morbidly obese female who had presented with RLQ abd pain of sudden onset currently managed as follows 1. RLQ adnexal lesion concerning for recurrent abscess -tuboovarian verus diverticular -s/p laparoscopic I and D of pelvic abscess, source? 11/08, cultures at that time grew Pansensitive Strep -Repeat CT after 3 days of IV abx basically shows no change -spoke with o and m supervisor, they recommend patient be observed in-house until 48 hours fever free, which will be 8 PM today, then they recommend to complete oral antibiotics as outpatient for at least 14 days. Recommend that patient have a repeat ultrasound after completion of antibiotics.per her, tubo-ovarian abscesses do take a while to heal. -I also shared general surgery is concern for possibility of developing a rectal abscess, but she said this is standard of care and this is what is indicated at this time, patient will need to be followed up outpatient with FACSIMILE MACHINE OPERATOR. 2. Morbid obesity -Continue full liquid diet 3. Mild sepsis secondary to 1: improved 4. Urinary tract infection: contaminant Dispo: await surgery final recs Result Diagram: 07/01/18 0424 07/01/184 Results 24hrs Laboratory Tests Test 07/01/18 04:24 White Blood Count 10.2 # Red Blood Count 4.02 L Hemoglobin 11.0 L Hematocrit 34.8 L Mean Corpuscular Volume 86.6 Mean Corpuscular Hemoglobin 27.4 L Mean Corpuscular Hemoglobin Concent 31.6 L Red Cell Distribution Width 13.2 Platelet Count 455 H Mean Platelet Volume 9.9 Immature Granulocytes % 1.400 H Neutrophils % 77.1 H Lymphocytes % 13.5 L Monocytes % 6.3 Eosinophils % 1.2 Basophils % 0.5 Nucleated Red Blood Cells % 0.0 Immature Granulocytes # 0.140 H Neutrophils # 7.9 H Lymphocytes # 1.4 Monocytes # 0.6 Eosinophils # 0.1 Basophils # 0.1 Nucleated Red Blood Cells # 0.0 Sodium Level 140 Potassium Level 4.0 Chloride Level 103 Carbon Dioxide Level 26 Anion Gap 11 Blood Urea Nitrogen 10 Creatinine 0.56 Est Glomerular Filtrat Rate mL/min > 60 Glucose Level 79 Calcium Level 9.3 Magnesium Level 2.2 Exam/Review of Systems Exam Vitals Vital Signs Date Temp Pulse Resp B/P (MAP) Pulse Ox O2 O2 Flow FiO2 Time Delivery Rate 07/01/18 98.5 81 18 90/62 (71) 100 Room Air 07:54 Intake and Output 06/30/18 06/30/18 07/01/18 1515:00 23:00 07:00 IntakeIntake Total 200 ml BalanceBalance 200 ml Results Results 24hrs Laboratory Tests Test 07/01/18 04:24 White Blood Count 10.2 # Red Blood Count 4.02 L Hemoglobin 11.0 L Hematocrit 34.8 L Mean Corpuscular Volume 86.6 Mean Corpuscular Hemoglobin 27.4 L Mean Corpuscular Hemoglobin Concent 31.6 L Red Cell Distribution Width 13.2 Platelet Count 455 H Mean Platelet Volume 9.9 Immature Granulocytes % 1.400 H Neutrophils % 77.1 H Lymphocytes % 13.5 L Monocytes % 6.3 Eosinophils % 1.2 Basophils % 0.5 Nucleated Red Blood Cells % 0.0 Immature Granulocytes # 0.140 H Neutrophils # 7.9 H Lymphocytes # 1.4 Monocytes # 0.6 Eosinophils # 0.1 Basophils # 0.1 Nucleated Red Blood Cells # 0.0 Sodium Level 140 Potassium Level 4.0 Chloride Level 103 Carbon Dioxide Level 26 Anion Gap 11 Blood Urea Nitrogen 10 Creatinine 0.56 Est Glomerular Filtrat Rate mL/min > 60 Glucose Level 79 Calcium Level 9.3 Magnesium Level 2.2 Medications Medication Current Medications Piperacillin Sod/ Tazobactam Sod 100 ml @ 200 mls/hr Q8 IVPB Last administered on 07/01/18 05:03; Admin Dose 200 MLS/HR; Start 06/26/18 at 16:00 Polyethylene Glycol (Miralax) 17 gm DAILY PO Last administered on 07/01/18 09:27; Admin Dose 17 GM; Start 06/26/18 at 14:00 Ondansetron HCl (Zofran Inj) 4 mg Q6H PRN IV NAUSEA AND/OR VOMITING Last administered on 06/29/18 14:37; Admin Dose 4 MG; Start 06/26/18 at 14:00 Acetaminophen/ Hydrocodone Bitart ([place] (5/325)) 1 tab Q6H PRN PO MODERATE PAIN LEVEL 4-6 Last administered on 07/01/18 05:04; Admin Dose 1 TAB; Start 06/26/18 at 14:00 Acetaminophen (Tylenol Tab) 650 mg Q4H PRN PO MILD PAIN(1-3)OR ELEVATED TEMP [place] [facility] administered on 06/28/18 03:14; Admin Dose 650 MG; Start 06/26/18 at 21:00 Acetaminophen/ Aspirin/Caffeine (Excedrin) 1 tab PRN PRN PO MILD PAIN LEVEL 1-3 Last administered on 06/28/18 16:54; Admin Dose 1 TAB; Start 06/28/18 at 15:30 Metronidazole (Flagyl) 500 mg Q8 PO Last administered on 07/01/18 05:03; Admin Dose 500 MG; Start 06/28/18 at 23:30; Stop 07/04/18 at 13:59 CARMENCITA BALDWIN Jul 01, 2018 13:11
[2018-07-01] MEDS: ONDANSETRON 4 MG INJ IV PRN (14:41)
--- NOTE | 2018-07-01 17:05 | QN ---
Documentation Comment 22 years old with possible right tubo-ovarian abscess was admitted for medical treatment and close observation. Patient seen at bedside. She denies nausea, vomiting, diarrhea, constipation, shortness of breath, chest pain, headache. Physical exam: General; she is comfortable no acute distress appropriate mood and affect Abdomen soft, mild right lower quadrant tenderness. No rebound or guarding Flank: No CVA tenderness bilateral Extremities: Within normal limits US: Uterus: The uterus is anteverted and normal in size measuring 7.0 cm in sagittal diameter and 3.6 x 3.3 cm in cross diameter. The endometrial stripe measures 7.4 mm. An IUD is seen to be satisfactorily positioned within the end ometrial cavity. Ovaries: The right ovary measures 10.7 x 7.4 x 6.6 cm and contains 2 complex cystic lesions with increased peripheral vascularity suspicious for tubo-ovarian abscesses. The larger measures 5.9 x 5.7 x 7.0 cm and the smaller measures alexy roximately 3.7 cm in diameter. The left ovary measures 3.1 x 2.2 x 2.1 cm and appears unremarkable. Vascular flow is demonstrated in each ovary on Doppler. Adnexa: No adnexal mass is identified. Free intraperitoneal fluid: There is a small amount of free fluid in the right adnexal region and cul-de-sac. IMPRESSION: 1. Enlarged right ovary containing 2 complex cystic structures with peripheral hypervascularity which have slightly increased in size since the previous sonogram suspicious for tubo-ovarian abscesses. Less likely, these could represent hemorrhagic cysts. 2. Normal appearing left ovary, unchanged. Vascular flow is demonstrated in each ovary. 3. There is now a small amount of free fluid seen in the cul-de-sac and a greater amount of free fluid seen in the right adnexal region. 4. Normal size anteverted uterus with a 7.4 mm endometrial stripe and with an IUD satisfactorily positioned within the endometrial canal, unchanged. Assessment and plan: 22 years old with suspected right tubo-ovarian abscess. Patient has history of tubo-ovarian abscess at 20:00 in 10/2017. She had low-grade fever on06/29/18. She is currently on Zosyn and metronidazole. Continue same antibiotic regimen. She was seen by surgeon, please see his note for detail. Consider surgical intervention if he is not responding to medical therapy treatment. Follow-up by laborist HADADIAN,SEDI Jul 01, 2018 17:05
[2018-07-01 19:15] VITALS: BP 119/73; PULSE 94; RESP 20
[2018-07-02 00:19] VITALS: BP 99/55; PULSE 85; RESP 18
[2018-07-02 02:05] VITALS: BP 95/53; PULSE 84; RESP 18
[2018-07-02] MEDS: PIPER-TAZO 3.375 GM IV (PMX) 100 ML IVPB SCH ×2 (05:36→13:32)
[2018-07-02] MEDS: metroNIDAZOLE 500 MG TAB PO SCH ×2 (05:36→13:32)
[2018-07-02 08:12] VITALS: BP 98/53; PULSE 84; RESP 18
[2018-07-02] MEDS: POLYETHYLENE GLYCOL 17 GM PACKET PO SCH (08:33)
[2018-07-02 14:00] VITALS: BP 99/56; PULSE 86; RESP 18
[2018-07-02] MEDS ORDERED: POLY17PO6 PO ×2 (14:06→17:02)
[2018-07-02] MEDS ORDERED: METR500T PO ×2 (14:06→17:02)
[2018-07-02] MEDS ORDERED: LACT1CAP57 PO ×2 (14:06→17:02)
[2018-07-02] MEDS ORDERED: DOXY100T20 PO ×2 (14:06→17:02)
[2018-07-02] MEDS ORDERED: HYDR-3601 PO (14:06)
--- NOTE | 2018-07-02 14:07 | PDOCDIS ---
Discharge Instructions CONDITION [id number] Patient Condition: [id number] Stable HOME CARE INSTRUCTIONS: [id number] Diet Instructions: Oecvc9s Reduced Calorie Qithm5Eh Special Diet: Exrsb3w 2000 calorie High-fiber diet ACTIVITY: [id number] Activity Restrictions: Ccbpo0s Slowly Increase Activity Rest between Activity Avoid heavy lifting FOLLOW UP/APPOINTMENTS Follow-up Plan You need to follow-up with gynecology for serial monitoring of your right adnexal abscess. Ensure you complete 2 weeks of your antibiotics. Follow-up with your primary care doctor as soon as possible to obtain gynecology referral. Please use the resources you have been provided. . CARMENCITA BALDWIN Jul 02, 2018 14:07
--- NOTE | 2018-07-02 14:33 | QN ---
Documentation Comment 22 years old with right tubo-ovarian abscess. Patient has been on Zosyn IV and Flagyl p.o. for 7 days She has been afebrile for more than 48 hours; she denies any pelvic pain, denies any nausea vomiting She is ambulating and tolerating regular diet and voiding without any difficulties Vital signs stable VS - Last 72 Hours, by Label Date Temp Pulse Resp B/P (MAP) Pulse Ox O2 O2 Flow FiO2 Time Delivery Rate 07/02/18 98.1 84 18 98/53 (68) 95 Room Air 08:12 07/02/18 98.1 84 18 95/53 (67) 91 02:05 07/02/18 98.1 85 18 99/55 (70) 94 Room Air 00:19 07/01/18 98.2 94 20 119/73 92 19:15 (88) 07/01/18 98.3 63 18 113/63 100 Room Air 13:12 (80) 07/01/18 98.5 81 18 90/62 (71) 100 Room Air 07:54 07/01/18 98.7 77 18 90/55 (67) 93 02:28 06/30/18 97.8 93 18 119/65 97 19:50 (83) 06/30/18 98.6 86 18 102/57 95 13:22 (72) 06/30/18 98.6 88 18 100/51 92 07:14 (67) 06/30/18 98.8 84 18 126/66 97 02:14 (86) 06/29/18 99.6 97 18 110/64 98 20:38 (79) 06/29/18 98.1 88 18 121/56 96 15:06 (77) PROCEDURE: US Pelvis Non-OB with endovaginal scanning and Doppler CLINICAL INDICATION: Right lower quadrant abdominal pain, nausea, tubal ovarian abscess TECHNIQUE: Images were taken during real time trans pelvic and endovaginal interrogation. Color-flow and Doppler interrogation of the ovaries was performed. COMPARISON: 06/26/2018 FINDINGS: Uterus: The uterus is anteverted and normal in size measuring 7.0 cm in sagittal diameter and 3.6 x 3.3 cm in cross diameter. The endometrial stripe measures 7.4 mm. An IUD is seen to be satisfactorily positioned within the endometrial cavity. Ovaries: The right ovary measures 10.7 x 7.4 x 6.6 cm and contains 2 complex cystic lesions with increased peripheral vascularity suspicious for tubo-ovarian abscesses. The larger measures 5.9 x 5.7 x 7.0 cm and the smaller measures approximately 3.7 cm in diameter. The left ovary measures 3.1 x 2.2 x 2.1 cm and appears unremarkable. Vascular flow is demonstrated in each ovary on Doppler. Adnexa: No adnexal mass is identified. Free intraperitoneal fluid: There is a small amount of free fluid in the right adnexal region and cul-de-sac. IMPRESSION: 1. Enlarged right ovary containing 2 complex cystic structures with peripheral hypervascularity which have slightly increased in size since the previous sonogram suspicious for tubo-ovarian abscesses. Less likely, these could repre sent hemorrhagic cysts. 2. Normal appearing left ovary, unchanged. Vascular flow is demonstrated in each ovary. 3. There is now a small amount of free fluid seen in the cul-de-sac and a greater amount of free fluid seen in the right adnexal region. 4. Normal size anteverted uterus with a 7.4 mm endometrial stripe and with an IUD satisfactorily positioned within the endometrial canal, unchanged. Physician Jennifer Date Time Electronically viewed and signed by Physician Jennifer on 06/30/2018 10:41 RH/ CC: RICH HACKETT MD [phone] Abdomen soft Extremities nontender Assessment and plan Patient is afebrile and stable and doing well Patient is cleared for discharge planning She was extensively counseled that she should follow-up with a telegraph plant maintainer as an outpatient that she would require a repeat pelvic ultrasound in 3 months as an outpatient She understood her plan of care and all her questions were answered JERICA HE MD Jul 02, 2018 14:33
--- NOTE | 2018-07-02 14:49 | DS ---
DATE OF ADMISSION: 06/26/2018 DATE OF DISCHARGE: 07/02/2018 FINAL DIAGNOSES: 1. Right adnexal region concerning for recurrent tubo-ovarian vessels diverticular abscess. 2. Status post laparoscopic I and D of pelvic abscess, source unclear. 11/08/2017. Cultures at [facility] time grew pansensitive strep. The patient was monitored inhouse with IV antibiotics and repeat CT after 3 days of antibiotics basic ally showed no change. At this time, she was seen by both general surgery as well as gynecology and at this time patient is being recommended for discharge with outpatient followup. Gynecology was rec ommended discharge on oral doxycycline and Flagyl. The patient to have a followup CT at completion o f antibiotic therapy in about 2 weeks, general surgery had recommended inpatient drainage, but as the patient had undergone drainage recently without significant change, gynecology is recommending to ho ld off on surgical intervention now and see how the patient does. 1. Morbid obesity, has been on calorie controlled diet. 2. Mild sepsis secondary to #1, resolved. CONSULTS ON THE CASE: Multiple; Dr. Carl Rees for general surgery, for gynecology Dr. Paddy marion as well as Dr. Claude Rouse and Dr. Michael Cano. INTERVENTION: The patient initially had a pelvic ultrasound. The CT of the abdomen in the ER initia lly, repeat CT 3 days after and repeat pelvic ultrasound 4 days after. HOSPITAL COURSE: Essentially summarized in the discharge diagnosis above. For further information, please review the patient's chart. The patient was also thought to have a urinary tract infection. Her urine culture came out to be contaminant. Either way, she was covered with antibiotic therapy. DISPOSITION: To home. The patient is to follow up with the [facility] team clinic which is where bruce had to seek care in the past, but if not, she has been given resources for her [facility] as well as other community health care centers in the vicinity. She has been adv ised that she needs serial surveillance of this abscess to ensure no worsening and actually to ensure complete resolution and she has been impressed at any sign of pain, bleeding or any other concerning symptoms like fever, she is to come back to the Emergency Room right away and She has verbalized und erstanding. DISCHARGE MEDICATIONS: For complete discharge medications, please review the patient's chart. DISCHARGE ACTIVITIES: As tolerated. The patient is recommended to maintain an [id number] calorie t for weight loss, high fiber. She has also been given stool softeners to ensure a regular bowel mov ement. Time spent on discharge coordination has been 40 minutes. DISCHARGE CONDITION: Stable. Dictated By: CARMENCITA BALDWIN MD BA/NTS Conf#: [id number] DID#: [id number]
== END 2018-07-02 17:35 | disposition home health service (06) | DRG 872 ==
LOC: FTE 08:18 → MS1 11:27
PROVIDERS: ADMIT Family Medicine; ATTEND Family Medicine
DX: A41.9 Sepsis, unspecified organism (principal); Z68.41 Body mass index [BMI] 40.0-44.9, adult; E66.01 Morbid (severe) obesity due to excess calories; N83.201 Unspecified ovarian cyst, right side; N70.93 Salpingitis and oophoritis, unspecified; F17.200 Nicotine dependence, unspecified, uncomplicated
CPT/HCPCS: 74160; 74176; 76830; 76856; 80048; 80053; 81001; 81025; 83605; 83735; 85025; 86592; 86706; 86708; 86803; 87086; 87340; 87591; 96374; 96375; J2405; J2543; J7030; Q9967